=== PATIENT | male | born 1930 | race African-American/Black ===

== ENCOUNTER 2018-11-26 18:12 | Inpatient (IN) | payer MEDICARE, OTHER ==
[~2018-11-26] VITALS: Ht 172.7 cm; Wt 72.6 kg
[~2018-11-26 18:12] MED LIST: AMLODIPINE BESYL5 MG ORAL; BACTRIM DS TAB1 EAC1 ORAL; CATAPRES0.1 MG ORAL; CEPHALEXIN500 MG ORAL; DOXYCYCLINE HY100 M2 PO; IRON18 M1 PO; LATANOPROST2.5 ML BOTH EYES; MIRTAZAPINE15 MG ORAL; MULTIVITAMINS1 EAC2 ORAL; OMEPRAZOLE20 M3 ORAL; PROZAC10 MG ORAL
--- NOTE | 2018-11-26 18:22 | NUR ---
ED Nurse Note: PT BROUGHT IN BY AMBULANCE FROM [facility] DUE TO LOW WBC COUNT. PT AOX4 AND AMBULATORY. PT STATES HE IS ASYMPTOMATIC. ON ASSESSMENT, BP: 170/69. PT STATES HE IS ON BP MEDS BUT DID NOT GET HIS LAST DOSE WHICH WAS DUE AT 1700. DR CRESPO AWARE. OTHER VSS.
[2018-11-26 18:24] VITALS: BP 171/69
[2018-11-26] MEDS ORDERED: ACETAMINOPHEN325 M1 ORAL (18:24)
[2018-11-26] MEDS ORDERED: FERROUS SULFAT325 MG ORAL (18:24)
[2018-11-26] MEDS ORDERED: CRANBERRY500 M4 PO (18:24)
[2018-11-26] MEDS ORDERED: MELATONIN3 M2 PO (18:25)
[2018-11-26] MEDS ORDERED: SENNA-DOCUSATE1 EACH PO (18:25)
[2018-11-26] MEDS ORDERED: SERTRALINE HCL100 MG PO (18:26)
[2018-11-26 18:53] LABS: HEMATOCRIT 30.7 % (42.0-52.0); HEMOGLOBIN 10.3 G/DL (14.2-18.0); MEAN CORPUSCULAR VOLUME 90 FL (80-99); PLATELET COUNT 115 K/UL (150-450); RED CELL DISTRIBUTION WIDTH 15.4 % (11.6-14.8)
[2018-11-26 18:55] LABS: WHITE BLOOD COUNT 1.8 K/UL (4.8-10.8)
--- NOTE | 2018-11-26 18:56 | NUR ---
ED Nurse Note: URINE COLLECTED AND SENT TO LAB.
[2018-11-26 19:02] LABS: APPEARANCE,URINE CLEAR; BILIRUBIN, URINE NEGATIVE (NEGATIVE); COLOR,URINE PALE YELLOW; GLUCOSE, URINE (UA) NEGATIVE (NEGATIVE); KETONES,URINE NEGATIVE (NEGATIVE); LEUKOCYTE ESTERASE ,URINE 1+ (NEGATIVE); NITRITE,URINE NEGATIVE (NEGATIVE); PH,URINE 6 (4.5-8.0); PROTEIN,URINE NEGATIVE (NEGATIVE); UROBILINOGEN,URINE NORMAL MG/DL (0.0-1.0)
--- NOTE | 2018-11-26 19:08 | NUR ---
ED Nurse Note: REPORT GIVEN TO JOSE G PARADA.
[2018-11-26 19:09] LABS: ANION GAP 11 mmol/L (5-15); BLOOD UREA NITROGEN 22 mg/dL (7-18); CALCIUM 9.3 MG/DL (8.5-10.1); CARBON DIOXIDE 25 MMOL/L (21-32); CHLORIDE 103 MMOL/L (98-107); CREATININE 1.3 MG/DL (0.55-1.30); POTASSIUM 3.9 MMOL/L (3.5-5.1); SODIUM 139 MMOL/L (136-145)
[2018-11-26 19:20] LABS: ALANINE AMINOTRANSFERASE 17 U/L (12-78); ALBUMIN 4.6 G/DL (3.4-5.0); ALBUMIN/GLOBULIN RATIO 1.3 (1.0-2.7); ALKALINE PHOSPHATASE 109 U/L (46-116); ASPARTATE AMINO TRANSFERASE 21 U/L (15-37); BILIRUBIN,TOTAL 0.4 MG/DL (0.2-1.0)
--- NOTE | 2018-11-26 21:00 | NUR ---
ED Nurse Note: Pt laying in bed, eyes closed, non labored breathing. 250ml yellow urine dispossed of, will continue to monitor, pt denies pain
--- NOTE | 2018-11-26 21:35 | Emergency Room Report ---
History of Present Illness General Chief Complaint: Abnormal Labs Source: Medical Record Present Illness HPI 88 yo male presents ED for evaluation. Sent in from [facility] today for abnormal labs. Had recent lab work which showed white count of 2.3. History of leukemia. Patient states he feels okay he denies weakness. Denies fevers or chills. States he does have some dysuria as well. History of prior bladder infections. No other aggravating or relieving factors. Denies any other associated symptoms Allergies: Coded Allergies: BUSPIRONE (Unverified Allergy, Unknown, 11/16/15) LISINOPRIL (Unverified Allergy, Unknown, 11/16/15) Patient History Social History: Denies: smoking, alcohol use, drug use Immunizations: UTD Reviewed Nursing Documentation: PMH: Agreed; PSxH: Agreed Nursing Documentation-PMH Past Medical History: No History, Except For Hx Cardiac Problems: Yes - HTN, Anemia, Thrombocytopenia Hx Diabetes: No - CHRONIC KIDNEY DISEASE Hx Cancer: Yes - LEUKEMIA Hx Gastrointestinal Problems: Yes - GERD History Of Psychiatric Problem: Yes - Anxiety, Major depression, psychosis Hx Neurological Problems: Yes - Encephalopathy, dementia Hx Dementia: Yes Review of Systems All Other Systems: negative except mentioned in HPI Physical Exam Vital Signs Date Time Temp Pulse Resp B/P (MAP) Pulse Ox O2 Delivery O2 Flow Rate FiO2 11/26/18 18:13 98.2 61 16 165/72 (103) 94 Room Air Sp02 EP Interpretation: reviewed, normal General Appearance: no apparent distress, alert, GCS 15, non-toxic Head: normocephalic, atraumatic Eyes: bilateral eye normal inspection, bilateral eye PERRL ENT: hearing grossly normal, normal pharynx, no angioedema, normal voice Neck: full range of motion, supple/symm/no masses Respiratory: chest non-tender, lungs clear, normal breath sounds, speaking full sentences Cardiovascular #1: regular rate, rhythm, no edema Cardiovascular #2: 2+ carotid (R), 2+ carotid (L), 2+ radial (R), 2+ radial (L) , 2+ dorsalis pedis (R), 2+ dorsalis pedis (L) Gastrointestinal: normal bowel sounds, non tender, soft, non-distended, no guarding, no rebound Rectal: deferred Genitourinary: normal inspection, no CVA tenderness Musculoskeletal: back normal, gait/station normal, normal range of motion, non- tender Neurologic: alert, oriented x3, responsive, motor strength/tone normal, sensory intact, speech normal Psychiatric: judgement/insight normal, memory normal, mood/affect normal, no suicidal/homicidal ideation Reflexes: 3+ bicep (R), 3+ bicep (L), 3+ tricep (R), 3+ tricep (L), 3+ knee (R) , 3+ knee (L) Skin: normal color, no rash, warm/dry, well hydrated Lymphatic: no adenopathy Medical Decision Making Diagnostic Impression: Primary Impression: Pancytopenia ER Course Hospital Course 88-year-old male presents to ED for evaluation of low WBC Differential diagnoses include: sepsis, pancytopenia, anemia Clinical course Patient placed on stretcher. After initial history and physical I ordered labs , CXR, UA Labs- WBC 1.8, Hb/hct stable, Platelets low. electrolytes ok. UA negative CXR ok Patient admitted previously for pancytopenia. History of leukemia. Will admit for further work-up and evaluation patient will be admitted to Dr Dunne Diagnosis - pancytopenia Admitted to floor in serious condition Labs Test 11/26/18 18:25 11/26/18 18:56 White Blood Count 1.8 K/UL (4.8-10.8) Red Blood Count 3.40 M/UL (4.70-6.10) Hemoglobin 10.3 G/DL (14.2-18.0) Hematocrit 30.7 % (42.0-52.0) Mean Corpuscular Volume 90 FL (80-99) Mean Corpuscular Hemoglobin 30.3 PG (27.0-31.0) Mean Corpuscular Hemoglobin Concent 33.6 G/DL (32.0-36.0) Red Cell Distribution Width 15.4 % (11.6-14.8) Platelet Count 115 K/UL (150-450) Mean Platelet Volume 11.5 FL (6.5-10.1) Neutrophils (%) (Auto) % (45.0-75.0) Lymphocytes (%) (Auto) % (20.0-45.0) Monocytes (%) (Auto) % (1.0-10.0) Eosinophils (%) (Auto) % (0.0-3.0) Basophils (%) (Auto) % (0.0-2.0) Differential Total Cells Counted 100 Neutrophils % (Manual) 50 % (45-75) Lymphocytes % (Manual) 36 % (20-45) Monocytes % (Manual) 8 % (1-10) Eosinophils % (Manual) 3 % (0-3) Basophils % (Manual) 0 % (0-2) Band Neutrophils 3 % (0-8) Nucleated Red Blood Cells 1 /100 WBC Platelet Estimate Decreased Platelet Morphology Giant Platelets 1+ Sodium Level 139 MMOL/L (136-145) Potassium Level 3.9 MMOL/L (3.5-5.1) Chloride Level 103 MMOL/L (98-107) Carbon Dioxide Level 25 MMOL/L (21-32) Anion Gap 11 mmol/L (5-15) Blood Urea Nitrogen 22 mg/dL (7-18) Creatinine 1.3 MG/DL (0.55-1.30) Estimat Glomerular Filtration Rate mL/min (>60) Glucose Level 105 MG/DL (74-106) Lactic Acid Level 1.20 mmol/L (0.4-2.0) Calcium Level 9.3 MG/DL (8.5-10.1) Total Bilirubin 0.4 MG/DL (0.2-1.0) Aspartate Amino Transf (AST/SGOT) 21 U/L (15-37) Alanine Aminotransferase (ALT/SGPT) 17 U/L (12-78) Alkaline Phosphatase 109 U/L (46-116) Pro-B-Type Natriuretic Peptide 147 pg/mL (0-125) Total Protein 8.2 G/DL (6.4-8.2) Albumin 4.6 G/DL (3.4-5.0) Globulin 3.6 g/dL Albumin/Globulin Ratio 1.3 (1.0-2.7) Urine Color Pale yellow Urine Appearance Clear Urine pH 6 (4.5-8.0) Urine Specific [place] 1.010 (1.005-1.035) Urine Protein Negative (NEGATIVE) Urine Glucose (UA) Negative (NEGATIVE) Urine Ketones Negative (NEGATIVE) Urine Blood Negative (NEGATIVE) Urine Nitrite Negative (NEGATIVE) Urine Bilirubin Negative (NEGATIVE) Urine Urobilinogen Normal MG/DL (0.0-1.0) Urine Leukocyte Esterase 1+ (NEGATIVE) Urine RBC 0 /HPF (0 - 0) Urine WBC 5-10 /HPF (0 - 0) Urine Squamous Epithelial Cells Few /LPF (NONE/OCC) Urine Bacteria Occasional /HPF (NONE) Chest X-Ray Diagnostic Results Chest X-Ray Diagnostic Results : Chest X-Ray Ordered: Yes # of Views/Limited/Complete: 1 View Indication: Other EP Interpretation: Yes Interpretation: no consolidation, no effusion, no pneumothorax, no acute cardiopulmonary disease Impression: No acute disease Electronically Signed by: Electronically signed by Morris Resendez MD Last Vital Signs Date Time Temp Pulse Resp B/P (MAP) Pulse Ox O2 Delivery O2 Flow Rate FiO2 11/26/18 18:24 98.4 65 20 171/69 99 Room Air Status: improved Disposition: ADMITTED INPATIENT Condition: Serious Referrals: Samira Dunne MD (PCP) Morris Resendez MD Nov 26, 2018 21:35
--- NOTE | 2018-11-26 22:02 | NUR ---
TRANSFER TO FLOOR: Patient transferred to as ordered, per Dr Dunne. Report given to JOSE G Rojas. Belongings and medications given to . Family and or S/O informed of transfer.
[2018-11-26 22:30] VITALS: BP 187/85
--- NOTE | 2018-11-26 22:45 | NUR ---
NURSE NOTES: RECEIVED PATIENT FROM ER, GOT REPORT FROM JOSE G PARADA. PATIENT IN BED, AWAKE AND ALERT, VERBALLY RESPONSIVE. IV IN PLACE, PATENT. SKIN ASSESSMENT DONE, DRY INTACT SKIN INTACT, NOTED TO HAVE INTACT CYST ON RIGHT SIDE OF CHEST AND ALSO NOTED TO HAVE INTACT CYSTS ON BACK. REVIEWED PATIENT BELONGINGS, NO VALUABLES NOTED, PATIENT SIGNED BELONGINGS LIST. PATIENT BROUGHT HIS OWN DIAPERS AND WAS ADAMANT ON WEARING THEM. NURSE EXPLAINED RISK FOR SKIN BREAK WITH WEARING DIAPERS, PATIENT STILL WANTED TO WEAR A DIAPER. NO S/S DISTRESS NOTED. BED IN LOWEST POSITION, CALL LIGHT WITHIN REACH, BED ALARM ON. WILL CONTINUE TO MONITOR.
[2018-11-26 23:05] VITALS: BP 164/74
[2018-11-27] VITALS (7 sets, daily range): BP systolic 117–154; BP diastolic 67–82
[2018-11-27] MEDS ORDERED: Sennosides 8.6mg tab ORAL PRN (00:15)
--- NOTE | 2018-11-27 00:51 | NUR ---
NURSE NOTES: RECEIVED CALL FROM DR. HAMMONDS REGARDING ADMISSION ORDERS - CBC IN AM, SAME CODE STATUS AT SNF, CONTINUE SNF MEDS, CONTINUE DIET FROM SNF, SCD AND VENOUS DUPLEX BLE. ORDERS CARRIED OUT.
--- NOTE | 2018-11-27 00:53 | NUR ---
NURSE NOTES: CALLED [facility] AND SPOKE WITH KAMI REGARDING CODE STATUS, SHE SATED PATIENT FULL CODE AND PNA VACCINE @ 04/02/18 AND FLU 04/02/18.
--- NOTE | 2018-11-27 05:00 | History and Physical Report ---
DATE OF ADMISSION: 11/26/2018 HISTORY OF PRESENT ILLNESS: Please see the records. The patient was admitted for pancytopenia as well as UTI. The patient is a poor historian, has advanced dementia. Cannot get reliable history from the patient. The patient denies any nausea, vomiting, or diarrhea. Denies bleeding. Denies shortness of breath. Denies cough. PAST MEDICAL HISTORY: Dementia, hypertension, iron deficiency anemia, glaucoma, chronic pain, GERD, constipation, mood disorder, and hypertension. PAST SURGICAL HISTORY: Denies. ALLERGIES: Buspirone and lisinopril. MEDICATIONS: Ferrous sulfate, cranberry juice, amlodipine, omeprazole, mirtazapine, and Senokot. FAMILY HISTORY: Noncontributory. SOCIAL HISTORY: Denies smoking, alcohol, or illicit drugs. Comes from a care home. REVIEW OF SYSTEMS: HEENT: Denies headaches. RESPIRATORY: Denies shortness of breath. Denies cough. CARDIOVASCULAR: Denies chest pain. GASTROINTESTINAL: Denies nausea, vomiting, or diarrhea. EXTREMITIES: Denies pain. CENTRAL NERVOUS SYSTEM: Denies changes in vision or speech pattern. PHYSICAL EXAMINATION: VITAL SIGNS: Temperature is 98.2 degrees, pulse 61, and blood pressure 165/72. HEENT: PERRLA. NECK: Supple. No lymphadenopathy. CHEST: Clear to auscultation. CARDIOVASCULAR: Regular rate and rhythm. No murmurs or extra sounds. GASTROINTESTINAL: Soft, nontender, and nondistended. No organomegaly. EXTREMITIES: No edema. Moves all four extremities. Sensory intact to light touch. Reflexes equal on both sides. NEUROLOGIC: Oriented x1. Able to move all extremities. LABORATORY AND DIAGNOSTIC DATA: WBC is 1.8, hemoglobin 10.3, and platelets of 150,000. Sodium 139, potassium 3.9, BUN of 22, and creatinine 1.2. The patient has UTI. ASSESSMENT/PLAN: UTI. I have asked Dr. Alexandre Curtis to see the patient for management of UTI and also for pancytopenia and Dr. Roberts as well as Dr. Gume Webb to consult the patient from the above the patient has chronic pancytopenia. Samira Dunne M.D. DR: Ely JOB#: [id number] CC:
[2018-11-27 06:24] LABS: HEMATOCRIT 32.4 % (42.0-52.0); HEMOGLOBIN 10.5 G/DL (14.2-18.0); MEAN CORPUSCULAR VOLUME 93 FL (80-99); PLATELET COUNT 100 K/UL (150-450); RED BLOOD COUNT 3.47 M/UL (4.70-6.10); RED CELL DISTRIBUTION WIDTH 15.6 % (11.6-14.8)
[2018-11-27 06:47] LABS: WHITE BLOOD COUNT 1.4 K/UL (4.8-10.8)
--- NOTE | 2018-11-27 07:15 | NUR ---
NURSE NOTES: SPOKE WITH CASIE CORONA, PATIENT'S WBC 1.4. CALLED AND LEFT MESSAGE FOR DR. HAMMONDS. RECEIEVED CALL BACK FROM DR. HAMMONDS T Addendum: 11/27/18 at 0717 by LAY CHEEK RN RN NURSE NOTES: SPOKE WITH CASIE CORONA, PATIENT'S WBC 1.4. CALLED AND LEFT MESSAGE FOR DR. HAMMONDS. RECEIVED CALL BACK FROM DR. HAMMONDS AND RECEIVED ORDER TO CALL DR. NISHA TORO. CALLED AND LEFT MESSAGE FOR DR. Darío TORO'S ANSWERING SERVICE. CHARGE NURSE AWARE.
--- NOTE | 2018-11-27 07:17 | NUR ---
HAND-OFF: Report given to MARICRUZ Anderson RN.
--- NOTE | 2018-11-27 07:30 | NUR ---
NURSE NOTES: Received pt from JOSE G CHUN. Pt is alert and orient x4. pt is RA, No SOB or acute respiratory distress noted. Pt has intact iv access RAC 20g SL. pt is aware about collecting urine in the bottle. pt is notified to be NPO due to abd for 6 hours after breakfast. all needs attended, bed is locked and is in the lowest position. call light within easy reach. will continue to monitor.
--- NOTE | 2018-11-27 08:30 | NUR ---
NURSE NOTES: NORVAC didn't administer due to katelin cardia and waisted in med room. will continue to monitor.
--- NOTE | 2018-11-27 08:47 | NUR ---
[employer] MANUFACTURING CONSULTANTHAND ALMOND BLANCHER 88 Y/O MALE BIBA FROM [facility] TO [facility] CC:ABNORMAL LABS SI:PANCYTOPENIA VS: BP 171/69, P 57, T 98.4, RR 20, SpO2 94 WBC 1.8, RBC 3.40, H&H 10.3/30.7, Plt. Count 115, BUN 22 IS:CLONIDINE HCI 0.1mg ADMITTED TO MED/SURG DCP: BACK TO [facility]
[2018-11-27] MEDS ORDERED: cefTRIAXone 1 GM in D5W 55 ML IVPB SCH (09:00)
[2018-11-27] MEDS ORDERED: Sertraline 100mg tab ORAL SCH (09:00)
--- NOTE | 2018-11-27 09:48 | Diagnostic Imaging Report ---
Indication: Shortness of breath Technique: One view of the chest Comparison: none Findings: Lungs and pleural spaces are clear. Heart size is normal Impression: No acute process
--- NOTE | 2018-11-27 10:00 | NUR ---
NURSE NOTES: HR between 48-58, and Dr HAMMONDS and BAN aware, Dr WHEATLEY ordered stat EKG and ECHO and transfer to TELE, noted and carried out. will continue to monitor.
--- NOTE | 2018-11-27 10:32 | NUR ---
NURSE NOTES: EKG and ECHO hasn't done yet, called EKG and ECHO again and mentioned it's stat and should be done soon. will continue to monitor.
--- NOTE | 2018-11-27 10:56 | NUR ---
CHARGE NURSE NOTES: Per Dr Celestin order Pt to be transferred to tele. Spoke to MAYE Johnson. No bed is available. Pt is to be transferred to [facility] as soon as room is available.
[2018-11-27] MEDS ORDERED: TBO-Filgrastim 300 mcg/0.5ml SQ SCH (11:00)
--- NOTE | 2018-11-27 11:29 | NUR ---
NURSE NOTES: Dr WHEATLEY is notified about EKG and ECHO result, and he is aware we are still waiting for tele bed, no new order to RN. will continue to monitor.
--- NOTE | 2018-11-27 12:41 | Cardiac Electrophysiology PN ---
Subjective Subjective [id number] Objective Last 24 Hour Vital Signs Date Time Temp Pulse Resp B/P (MAP) Pulse Ox O2 Delivery O2 Flow Rate FiO2 11/27/18 11:59 97.2 56 18 126/67 (86) 97 11/27/18 09:00 Room Air 11/27/18 08:33 58 133/67 11/27/18 08:29 133/67 11/27/18 08:00 97.5 58 17 133/67 (89) 98 11/27/18 04:36 97.1 57 18 138/74 (95) 97 11/27/18 00:32 97.4 55 18 154/82 (106) 100 11/26/18 23:07 Room Air 11/26/18 23:05 97.3 64 164/74 (104) 11/26/18 22:30 96.7 61 19 187/85 (119) 96 11/26/18 22:00 57 16 142/87 97 Room Air 11/26/18 18:24 98.4 65 20 171/69 99 Room Air 11/26/18 18:13 98.2 61 16 165/72 (103) 94 Room Air Intake and Output 11/26/18 11/27/18 19:00 07:00 # Voids 1 3 Laboratory Tests Test 11/26/18 18:25 11/26/18 18:56 11/27/18 05:10 11/27/18 08:35 White Blood Count 1.8 K/UL (4.8-10.8) *L 1.4 K/UL (4.8-10.8) *L Red Blood Count 3.40 M/UL (4.70-6.10) L 3.47 M/UL (4.70-6.10) L Hemoglobin 10.3 G/DL (14.2-18.0) L 10.5 G/DL (14.2-18.0) L Hematocrit 30.7 % (42.0-52.0) L 32.4 % (42.0-52.0) L Mean Corpuscular Volume 90 FL (80-99) 93 FL (80-99) Mean Corpuscular Hemoglobin 30.3 PG (27.0-31.0) 30.2 PG (27.0-31.0) Mean Corpuscular Hemoglobin Concent 33.6 G/DL (32.0-36.0) 32.4 G/DL (32.0-36.0) Red Cell Distribution Width 15.4 % (11.6-14.8) H 15.6 % (11.6-14.8) H Platelet Count 115 K/UL (150-450) L 100 K/UL (150-450) L Mean Platelet Volume 11.5 FL (6.5-10.1) H 11.2 FL (6.5-10.1) H Neutrophils (%) (Auto) % (45.0-75.0) % (45.0-75.0) Lymphocytes (%) (Auto) % (20.0-45.0) % (20.0-45.0) Monocytes (%) (Auto) % (1.0-10.0) % (1.0-10.0) Eosinophils (%) (Auto) % (0.0-3.0) % (0.0-3.0) Basophils (%) (Auto) % (0.0-2.0) % (0.0-2.0) Differential Total Cells Counted 100 100 Neutrophils % (Manual) 50 % (45-75) 32 % (45-75) L Lymphocytes % (Manual) 36 % (20-45) 50 % (20-45) H Monocytes % (Manual) 8 % (1-10) 15 % (1-10) H Eosinophils % (Manual) 3 % (0-3) 3 % (0-3) Basophils % (Manual) 0 % (0-2) 0 % (0-2) Band Neutrophils 3 % (0-8) 0 % (0-8) Nucleated Red Blood Cells 1 /100 WBC Platelet Estimate Decreased L Decreased L Platelet Morphology Giant Platelets 1+ 1+ Anisocytosis 1+ 1+ Sodium Level 139 MMOL/L (136-145) Potassium Level 3.9 MMOL/L (3.5-5.1) Chloride Level 103 MMOL/L (98-107) Carbon Dioxide Level 25 MMOL/L (21-32) Anion Gap 11 mmol/L (5-15) Blood Urea Nitrogen 22 mg/dL (7-18) H Creatinine 1.3 MG/DL (0.55-1.30) Estimat Glomerular Filtration Rate mL/min (>60) Glucose Level 105 MG/DL (74-106) Lactic Acid Level 1.20 mmol/L (0.4-2.0) Calcium Level 9.3 MG/DL (8.5-10.1) Total Bilirubin 0.4 MG/DL (0.2-1.0) Aspartate Amino Transf (AST/SGOT) 21 U/L (15-37) Alanine Aminotransferase (ALT/SGPT) 17 U/L (12-78) Alkaline Phosphatase 109 U/L (46-116) Pro-B-Type Natriuretic Peptide 147 pg/mL (0-125) H Total Protein 8.2 G/DL (6.4-8.2) Albumin 4.6 G/DL (3.4-5.0) Globulin 3.6 g/dL Albumin/Globulin Ratio 1.3 (1.0-2.7) Urine Color Pale yellow Urine Appearance Clear Urine pH 6 (4.5-8.0) Urine Specific [place] 1.010 (1.005-1.035) Urine Protein Negative (NEGATIVE) Urine Glucose (UA) Negative (NEGATIVE) Urine Ketones Negative (NEGATIVE) Urine Blood Negative (NEGATIVE) Urine Nitrite Negative (NEGATIVE) Urine Bilirubin Negative (NEGATIVE) Urine Urobilinogen Normal MG/DL (0.0-1.0) Urine Leukocyte Esterase 1+ (NEGATIVE) H Urine RBC 0 /HPF (0 - 0) Urine WBC 5-10 /HPF (0 - 0) H Urine Squamous Epithelial Cells Few /LPF (NONE/OCC) Urine Bacteria Occasional /HPF (NONE) Polychromasia 1+ Carcinoembryonic Antigen Pending Prostate Specific Antigen 12.18 ng/mL (0.13-4.0) H Hepatitis A IgM Antibody Pending Hepatitis B Surface Antigen Pending Hepatitis B Core IgM Antibody Pending Hepatitis C Antibody Pending HIV (1&2) Antibody Rapid Negative (NEGATIVE) Aurelio Hood MD Nov 27, 2018 12:41
--- NOTE | 2018-11-27 13:05 | NUR ---
NURSE NOTES: Patient transferred from [facility], and received report from Afsoon/RN. Patient awake and alert, No acute distress noted at this time, Heart monitor in place. IV on right AC patent, no bleeding or infiltration noted. Patient denies any pain at this time. Vitals are stable except HR bradycardia. Bed in low position and locked, Call light within reach. Will continue plan of care.
--- NOTE | 2018-11-27 13:09 | NUR ---
NURSE NOTES: pt is stable, pt is alert and orient x4. no SOB or acute respiratory distress noted. pt is NPO due to abd . Dr Miley WADE visited pt and is aware about WBC 1.4 and other lab results[address] Dr WHEATLEY visited pt and and saw EKG, no new order to RN. pt transferred to TELE and report given to JOSE G SANTOS.
--- NOTE | 2018-11-27 13:14 | Consultation ---
History of Present Illness General Chief Complaint: Abnormal Labs Present Illness Allergies: Coded Allergies: BUSPIRONE (Unverified Allergy, Unknown, 11/16/15) LISINOPRIL (Unverified Allergy, Unknown, 11/16/15) Medication History Scheduled Amlodipine Besylate* (Amlodipine Besylate*), 5 MG ORAL DAILY, (Reported) Clonidine Hcl* (Catapres*), 0.1 MG ORAL BID, (Reported) Cranberry Extract (Cranberry), 900 MG PO BID, (Reported) Ferrous Sulfate* (Ferrous Sulfate*), 325 MG ORAL DAILY, (Reported) Latanoprost* (Xalatan*), 1 DROP BOTH EYES BEDTIME, (Reported) Multivitamins* (Multivitamins*), 1 TAB ORAL DAILY, (Reported) Omeprazole (Omeprazole), 20 MG ORAL DAILY, (Reported) Sertraline Hcl* (Zoloft*), 200 MG PO DAILY, (Reported) Scheduled PRN Acetaminophen* (Acetaminophen 325MG Tablet*), 650 MG ORAL Q4H PRN for For Pain, (Reported) Melatonin (Melatonin), 3 MG PO HS PRN for SLEEP, (Reported) Sennosides/Docusate Sodium (Senna-Docusate Sodium Tablet), 2 EACH PO DAILY PRN for Constipation, (Reported) Discontinued Medications Doxycycline Hyclate (Doxycycline Hyclate), 100 MG PO Q12HR, (Reported) Discontinued Reason: Therapy completed Fluoxetine Hcl* (Prozac*), 10 MG ORAL DAILY, (Reported) Discontinued Reason: Therapy completed Iron (Iron), 325 MG PO TID, (Reported) Discontinued Reason: Therapy completed Mirtazapine* (Remeron*), 15 MG ORAL BEDTIME, (Reported) Discontinued Reason: Therapy completed Patient History Healthcare decision maker Resuscitation status Full Code Advanced Directive on File Physical Exam Last 24 Hour Vital Signs Date Time Temp Pulse Resp B/P (MAP) Pulse Ox O2 Delivery O2 Flow Rate FiO2 11/27/18 11:59 97.2 56 18 126/67 (86) 97 11/27/18 09:00 Room Air 11/27/18 08:33 58 133/67 11/27/18 08:29 133/67 11/27/18 08:00 97.5 58 17 133/67 (89) 98 11/27/18 04:36 97.1 57 18 138/74 (95) 97 11/27/18 00:32 97.4 55 18 154/82 (106) 100 11/26/18 23:07 Room Air 11/26/18 23:05 97.3 64 164/74 (104) 11/26/18 22:30 96.7 61 19 187/85 (119) 96 11/26/18 22:00 57 16 142/87 97 Room Air 11/26/18 18:24 98.4 65 20 171/69 99 Room Air 11/26/18 18:13 98.2 61 16 165/72 (103) 94 Room Air Intake and Output 11/26/18 11/27/18 19:00 07:00 # Voids 1 3 Laboratory Tests Test 11/26/18 18:25 11/26/18 18:56 11/27/18 05:10 11/27/18 08:35 White Blood Count 1.8 K/UL (4.8-10.8) *L 1.4 K/UL (4.8-10.8) *L Red Blood Count 3.40 M/UL (4.70-6.10) L 3.47 M/UL (4.70-6.10) L Hemoglobin 10.3 G/DL (14.2-18.0) L 10.5 G/DL (14.2-18.0) L Hematocrit 30.7 % (42.0-52.0) L 32.4 % (42.0-52.0) L Mean Corpuscular Volume 90 FL (80-99) 93 FL (80-99) Mean Corpuscular Hemoglobin 30.3 PG (27.0-31.0) 30.2 PG (27.0-31.0) Mean Corpuscular Hemoglobin Concent 33.6 G/DL (32.0-36.0) 32.4 G/DL (32.0-36.0) Red Cell Distribution Width 15.4 % (11.6-14.8) H 15.6 % (11.6-14.8) H Platelet Count 115 K/UL (150-450) L 100 K/UL (150-450) L Mean Platelet Volume 11.5 FL (6.5-10.1) H 11.2 FL (6.5-10.1) H Neutrophils (%) (Auto) % (45.0-75.0) % (45.0-75.0) Lymphocytes (%) (Auto) % (20.0-45.0) % (20.0-45.0) Monocytes (%) (Auto) % (1.0-10.0) % (1.0-10.0) Eosinophils (%) (Auto) % (0.0-3.0) % (0.0-3.0) Basophils (%) (Auto) % (0.0-2.0) % (0.0-2.0) Differential Total Cells Counted 100 100 Neutrophils % (Manual) 50 % (45-75) 32 % (45-75) L Lymphocytes % (Manual) 36 % (20-45) 50 % (20-45) H Monocytes % (Manual) 8 % (1-10) 15 % (1-10) H Eosinophils % (Manual) 3 % (0-3) 3 % (0-3) Basophils % (Manual) 0 % (0-2) 0 % (0-2) Band Neutrophils 3 % (0-8) 0 % (0-8) Nucleated Red Blood Cells 1 /100 WBC Platelet Estimate Decreased L Decreased L Platelet Morphology Giant Platelets 1+ 1+ Anisocytosis 1+ 1+ Sodium Level 139 MMOL/L (136-145) Potassium Level 3.9 MMOL/L (3.5-5.1) Chloride Level 103 MMOL/L (98-107) Carbon Dioxide Level 25 MMOL/L (21-32) Anion Gap 11 mmol/L (5-15) Blood Urea Nitrogen 22 mg/dL (7-18) H Creatinine 1.3 MG/DL (0.55-1.30) Estimat Glomerular Filtration Rate mL/min (>60) Glucose Level 105 MG/DL (74-106) Lactic Acid Level 1.20 mmol/L (0.4-2.0) Calcium Level 9.3 MG/DL (8.5-10.1) Total Bilirubin 0.4 MG/DL (0.2-1.0) Aspartate Amino Transf (AST/SGOT) 21 U/L (15-37) Alanine Aminotransferase (ALT/SGPT) 17 U/L (12-78) Alkaline Phosphatase 109 U/L (46-116) Pro-B-Type Natriuretic Peptide 147 pg/mL (0-125) H Total Protein 8.2 G/DL (6.4-8.2) Albumin 4.6 G/DL (3.4-5.0) Globulin 3.6 g/dL Albumin/Globulin Ratio 1.3 (1.0-2.7) Urine Color Pale yellow Urine Appearance Clear Urine pH 6 (4.5-8.0) Urine Specific [place] 1.010 (1.005-1.035) Urine Protein Negative (NEGATIVE) Urine Glucose (UA) Negative (NEGATIVE) Urine Ketones Negative (NEGATIVE) Urine Blood Negative (NEGATIVE) Urine Nitrite Negative (NEGATIVE) Urine Bilirubin Negative (NEGATIVE) Urine Urobilinogen Normal MG/DL (0.0-1.0) Urine Leukocyte Esterase 1+ (NEGATIVE) H Urine RBC 0 /HPF (0 - 0) Urine WBC 5-10 /HPF (0 - 0) H Urine Squamous Epithelial Cells Few /LPF (NONE/OCC) Urine Bacteria Occasional /HPF (NONE) Polychromasia 1+ Carcinoembryonic Antigen Pending Prostate Specific Antigen 12.18 ng/mL (0.13-4.0) H Hepatitis A IgM Antibody Pending Hepatitis B Surface Antigen Pending Hepatitis B Core IgM Antibody Pending Hepatitis C Antibody Pending HIV (1&2) Antibody Rapid Negative (NEGATIVE) Height (Feet): 5 Height (Inches): 8.00 Weight (Pounds): 160 Medications Current Medications Medications (Trade) Dose Ordered Sig/Joellen Route PRN Reason Start Time Stop Time Status Last Admin Dose Admin Acetaminophen (Tylenol) 650 mg Q4H PRN ORAL For Pain 11/27/18 00:00 12/27/18 00:00 Amlodipine Besylate (Norvasc) 5 mg DAILY ORAL 11/27/18 09:00 12/27/18 08:59 Ceftriaxone Sodium 1 gm/ Dextrose 55 ml @ 110 mls/hr DAILY IVPB 11/27/18 09:00 12/04/18 08:59 11/27/18 08:28 Ferrous Sulfate (Feosol) 325 mg DAILY ORAL 11/27/18 09:00 12/27/18 08:59 11/27/18 08:28 Latanoprost (Xalatan) 1 drop BEDTIME BOTH EYES 11/27/18 21:00 12/27/18 20:59 Multivitamins (Multivitamins) 1 tab DAILY ORAL 11/27/18 09:00 12/27/18 08:59 11/27/18 08:29 Pantoprazole (Protonix) 40 mg ACBREAKFAST ORAL 11/27/18 06:30 12/27/18 06:29 11/27/18 05:36 Sennosides (Senokot) 17.2 mg PRN PRN ORAL Constipation 11/27/18 00:15 12/27/18 00:14 Sertraline HCl (Zoloft) 200 mg DAILY ORAL 11/27/18 09:00 12/27/18 08:59 11/27/18 08:28 Assessment/Plan Assessment/Plan: Hematology Consultation Chief Complaint: Abnormal Labs REQ MD: Samira Dunne RFC: Leukopenia, LEUKEMIA history DOS: 11/27/18 HPI 88 yo male presents ED for evaluation. I have seen him before, approximately 3 years ago in 2016, labs and notes were reviewed. Sent in from [facility] today for abnormal labs. Had recent lab work which showed white count of 2.3. History of leukemia. Patient states he feels okay he denies weakness. Denies fevers or chills. States he does have some dysuria as well. History of prior bladder infections. No other aggravating or relieving factors. Denies any other associated symptoms, at this time, was given neupogen and heme was consulted. Allergies: BUSPIRONE (Unverified Allergy, Unknown, 11/16/15) LISINOPRIL (Unverified Allergy, Unknown, 11/16/15) Social History: Denies: smoking, alcohol use, drug use Immunizations: UTD Reviewed Nursing Documentation: PMH: Agreed; PSxH: Agreed Past Medical History: No History, Except For Hx Cardiac Problems: Yes - HTN, Anemia, Thrombocytopenia Hx Diabetes: No - CHRONIC KIDNEY DISEASE Hx Cancer: Yes - LEUKEMIA Hx Gastrointestinal Problems: Yes - GERD History Of Psychiatric Problem: Yes - Anxiety, Major depression, psychosis Hx Neurological Problems: Yes - Encephalopathy, dementia Hx Dementia: Yes Review of Systems: negative except mentioned in HPI Last 24 Hour Vital Signs Date Time Temp Pulse Resp B/P (MAP) Pulse Ox O2 Delivery O2 Flow Rate FiO2 11/27/18 11:59 97.2 56 18 126/67 (86) 97 11/27/18 09:00 Room Air 6/14/19 08:33 58 133/67 11/27/18 08:29 133/67 11/27/18 08:00 97.5 58 17 133/67 (89) 98 11/27/18 04:36 97.1 57 18 138/74 (95) 97 11/27/18 00:32 97.4 55 18 154/82 (106) 100 11/26/18 23:07 Room Air 11/26/18 23:05 97.3 64 164/74 (104) 11/26/18 22:30 96.7 61 19 187/85 (119) 96 11/26/18 22:00 57 16 142/87 97 Room Air 11/26/18 18:24 98.4 65 20 171/69 99 Room Air 11/26/18 18:13 98.2 61 16 165/72 (103) 94 Room Air Physical Exam: Vitals: reviewed General Appearance: NAD HEENT: normocephalic, atraumatic Neck: non-tender, normal alignment Respiratory/Chest: normal breath sounds bilaterally Cardiovascular/Chest: normal peripheral pulses, normal rate Abdomen: normal bowel sounds, soft, nontender Extremities: normal range of motion Active Scripts Medications Dose Route/Sig Max Daily Dose Days Date Category Dose Instructions Zoloft* (Sertraline HCl) 100 Mg Tablet 200 Mg PO DAILY 11/26/18 Reported Senna-Docusate Sodium Tablet (Sennosides/Docusate Sodium) 1 Each Tablet 2 Each PO DAILY PRN 11/26/18 Reported Melatonin 3 Mg Tab.rapdis 3 Mg PO HS PRN 11/26/18 Reported Ferrous Sulfate* (Ferrous Sulfate) 325 Mg Tablet 325 Mg ORAL DAILY 11/26/18 Reported Cranberry (Cranberry Extract) 500 Mg Tablet 900 Mg PO BID 11/26/18 Reported Acetaminophen 325MG Tablet* (Acetaminophen) 325 Mg Tablet 650 Mg ORAL Q4H PRN 11/26/18 Reported Multivitamins* (Multivitamins) 1 Each Tablet 1 Tab ORAL DAILY 11/20/15 Reported Omeprazole 20 Mg Tablet.dr 20 Mg ORAL DAILY 11/16/15 Reported Xalatan* (Latanoprost) 2.5 Ml Drops 1 Drop BOTH EYES BEDTIME 11/16/15 Reported Catapres* (Clonidine HCl) 0.1 Mg Tablet 0.1 Mg ORAL BID 11/16/15 Reported HOLD IF SBP < 110 OR HR < 60 Amlodipine Besylate* (Amlodipine Besylate) 5 Mg Tablet 5 Mg ORAL DAILY 11/16/15 Reported HOLD IF SBP < 110 OR HR < 60 Laboratory Tests Test 11/26/18 18:25 11/26/18 18:56 11/27/18 05:10 11/27/18 08:35 White Blood Count 1.8 K/UL (4.8-10.8) *L 1.4 K/UL (4.8-10.8) *L Red Blood Count 3.40 M/UL (4.70-6.10) L 3.47 M/UL (4.70-6.10) L Hemoglobin 10.3 G/DL (14.2-18.0) L 10.5 G/DL (14.2-18.0) L Hematocrit 30.7 % (42.0-52.0) L 32.4 % (42.0-52.0) L Mean Corpuscular Volume 90 FL (80-99) 93 FL (80-99) Mean Corpuscular Hemoglobin 30.3 PG (27.0-31.0) 30.2 PG (27.0-31.0) Mean Corpuscular Hemoglobin Concent 33.6 G/DL (32.0-36.0) 32.4 G/DL (32.0-36.0) Red Cell Distribution Width 15.4 % (11.6-14.8) H 15.6 % (11.6-14.8) H Platelet Count 115 K/UL (150-450) L 100 K/UL (150-450) L Mean Platelet Volume 11.5 FL (6.5-10.1) H 11.2 FL (6.5-10.1) H Neutrophils (%) (Auto) % (45.0-75.0) % (45.0-75.0) Lymphocytes (%) (Auto) % (20.0-45.0) % (20.0-45.0) Monocytes (%) (Auto) % (1.0-10.0) % (1.0-10.0) Eosinophils (%) (Auto) % (0.0-3.0) % (0.0-3.0) Basophils (%) (Auto) % (0.0-2.0) % (0.0-2.0) Differential Total Cells Counted 100 100 Neutrophils % (Manual) 50 % (45-75) 32 % (45-75) L Lymphocytes % (Manual) 36 % (20-45) 50 % (20-45) H Monocytes % (Manual) 8 % (1-10) 15 % (1-10) H Eosinophils % (Manual) 3 % (0-3) 3 % (0-3) Basophils % (Manual) 0 % (0-2) 0 % (0-2) Band Neutrophils 3 % (0-8) 0 % (0-8) Nucleated Red Blood Cells 1 /100 WBC Platelet Estimate Decreased L Decreased L Platelet Morphology Giant Platelets 1+ 1+ Anisocytosis 1+ 1+ Sodium Level 139 MMOL/L (136-145) Potassium Level 3.9 MMOL/L (3.5-5.1) Chloride Level 103 MMOL/L (98-107) Carbon Dioxide Level 25 MMOL/L (21-32) Anion Gap 11 mmol/L (5-15) Blood Urea Nitrogen 22 mg/dL (7-18) H Creatinine 1.3 MG/DL (0.55-1.30) Estimat Glomerular Filtration Rate mL/min (>60) Glucose Level 105 MG/DL (74-106) Lactic Acid Level 1.20 mmol/L (0.4-2.0) Calcium Level 9.3 MG/DL (8.5-10.1) Total Bilirubin 0.4 MG/DL (0.2-1.0) Aspartate Amino Transf (AST/SGOT) 21 U/L (15-37) Alanine Aminotransferase (ALT/SGPT) 17 U/L (12-78) Alkaline Phosphatase 109 U/L (46-116) Pro-B-Type Natriuretic Peptide 147 pg/mL (0-125) H Total Protein 8.2 G/DL (6.4-8.2) Albumin 4.6 G/DL (3.4-5.0) Globulin 3.6 g/dL Albumin/Globulin Ratio 1.3 (1.0-2.7) Urine Color Pale yellow Urine Appearance Clear Urine pH 6 (4.5-8.0) Urine Specific [place] 1.010 (1.005-1.035) Urine Protein Negative (NEGATIVE) Urine Glucose (UA) Negative (NEGATIVE) Urine Ketones Negative (NEGATIVE) Urine Blood Negative (NEGATIVE) Urine Nitrite Negative (NEGATIVE) Urine Bilirubin Negative (NEGATIVE) Urine Urobilinogen Normal MG/DL (0.0-1.0) Urine Leukocyte Esterase 1+ (NEGATIVE) H Urine RBC 0 /HPF (0 - 0) Urine WBC 5-10 /HPF (0 - 0) H Urine Squamous Epithelial Cells Few /LPF (NONE/OCC) Urine Bacteria Occasional /HPF (NONE) Polychromasia 1+ Carcinoembryonic Antigen Pending Prostate Specific Antigen 12.18 ng/mL (0.13-4.0) H Hepatitis A IgM Antibody Pending Hepatitis B Surface Antigen Pending Hepatitis B Core IgM Antibody Pending Hepatitis C Antibody Pending HIV (1&2) Antibody Rapid Negative (NEGATIVE) Assessment and Recs: # Leukemia, unspecified -- have seen this patient back in 2015, labs, notes and imaging reviewed, wbc remains low though at this time is lower than it was before --> at this time, his pancytopenia, called [facility] and they do not have any further records in regards to type of anemia --> will given 1 dose of neupogen 300mcg sq x 1 --> hepatitis and hiv were negative --> us of the abd was negative for cirrhosis --> have made an appt for 2 weeks to follow up at our clinic --> reverse isolation if ANC<1000 # 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 GREATLY APPRECIATE CONSULTATION. Gume Webb MD Nov 27, 2018 13:14
--- NOTE | 2018-11-27 14:45 | Diagnostic Imaging Report ---
Indication: Abnormal renal function tests, abnormal liver function tests Technique: Mclain-scale and duplex images of the upper abdomen were obtained Comparison: 11/17/2015 Findings: Gallbladder is unremarkable, without stones, wall thickening, nor pericholecystic fluid. Sonographic Wilson's sign is negative. Common bile duct measures 5 mm in diameter. No intrahepatic biliary ductal dilatation. Liver demonstrates normal echogenicity. Within the left hepatic lobe, there is an 11 mm cyst again demonstrated. Portal vein and hepatic veins are patent. Pancreas is unremarkable. Spleen is unremarkable. Left kidney measures 10 cm in length. Right kidney measures 0.7 cm length. Both kidneys demonstrate normal echogenicity. There is no hydronephrosis. A cyst is seen in the lower pole of the left kidney. Questionable echogenic focus with shadowing is seen in the left kidney. Non-aneurysmal abdominal aorta . When compared to prior study, the left renal echogenic focus was not appreciated previously. Other findings are unchanged Impression: Abnormality. No evidence of gallstones or dilated ducts Hepatic and left renal cysts are incidentally noted Echogenic focus in the left kidney, could represent a small nonobstructive calculus
--- NOTE | 2018-11-27 17:15 | Consultation ---
DATE OF CONSULTATION: 11/27/2018 INFECTIOUS DISEASE CONSULTATION CONSULTING PHYSICIAN: Alexandre Curtis M.D. PRIMARY ATTENDING PHYSICIAN: Samira Dunne M.D. REASON FOR CONSULT: Pyuria, UTI. HISTORY OF PRESENT ILLNESS: The patient is an 88-year-old male who is a [place] [facility] resident, admitted last night because of abnormal labs. He has decreased WBC count. Also, he has anemia and thrombocytopenia. UA has mild pyuria. The patient has pain in bladder. PAST MEDICAL HISTORY: Significant for pancytopenia. The patient had an another admission to [facility] in 2016. At that time, no other cause found for pancytopenia. Abdominal ultrasound showed normal liver and spleen. He has history of hypertension. In the history also it was mentioned leukemia. He has anxiety, depression, and dementia. He has glaucoma. ALLERGIES: Allergic to buspirone and lisinopril. MEDICATIONS: Xalatan eye drops, Filgrastim, ferrous sulfate, multivitamin, Zoloft, Norvasc, clonidine, ceftriaxone, Protonix, Senokot, and Tylenol. SOCIAL HISTORY: [facility] resident. Denies alcohol, drug abuse, or smoking. Single, has no child. REVIEW OF SYSTEMS: No fever. No chills. No coughing. No shortness of breath. No change in appetite. No nausea. No vomiting. He has pain at the time of urination. PHYSICAL EXAMINATION: GENERAL: Seems to have normal weight. HEAD AND NECK: [place] conjunctivae. HEART: Normal rate. LUNGS: Clear. ABDOMEN: Soft and nontender. EXTREMITIES: He has no edema. NEUROLOGIC: Awake and alert, move all extremities. LABORATORY AND DIAGNOSTIC DATA: WBC today is 1.4, hemoglobin 10.5, hematocrit 32.4, and platelets 100. PSA is 12.18. Sodium 139, potassium 3.9, chloride 103, bicarbonate 25, BUN 22, and creatinine 1.3. BNP is 147. Chest x-ray is showing no acute process. UA showed wbc's of 5 to 10, leukocyte esterase 1+, and bacteria occasional. IMPRESSION: 1. Pyuria, may have urinary tract infection. 2. Pancytopenia. 3. Bradycardia. 4. Hypertension. 5. Chronic kidney disease, stage 2. 6. Depression. 7. Anxiety. 8. Dementia. 9. Glaucoma. RECOMMENDATION: We will continue ceftriaxone. We will follow up the cultures. At the end of my exam, I thank Dr. Dunne for involving me in the care of this patient. Alexandre Curtis M.D. DR: PATRICIA JOB#: [id number] CC:
--- NOTE | 2018-11-27 17:30 | Consultation ---
DATE OF CONSULTATION: 11/27/2018 CARDIOLOGY CONSULTATION CONSULTING PHYSICIAN: Aurelio Hood M.D. REFERRING PHYSICIAN: Samira Dunne M.D. REASON FOR CONSULTATION: Bradycardia and hypertension. HISTORY OF PRESENT ILLNESS: The patient is an 88-year-old gentleman with history of hypertension, leukemia, chronic kidney disease, history of major depression, psychosis, encephalopathy, and dementia who was brought in from [facility] facility for abnormal labs including white count of 22.3. The patient denies any chest pain or shortness of breath; however, noted to be bradycardic with heart rate in the high 40 and low 50s. A 12-lead EKG obtained that showed sinus bradycardia with marked sinus arrhythmia with heart rate of 53 and first-degree AV block. REVIEW OF SYSTEMS: Negative other than what was mentioned in history of present illness. PAST MEDICAL HISTORY: As mentioned above. FAMILY HISTORY: Noncontributory. SOCIAL HISTORY: He lives in group home. ALLERGIES: He is allergic to BuSpar and lisinopril. PHYSICAL EXAMINATION: VITAL SIGNS: Show blood pressure of 126/67, pulse is 56, respirations 18, temperature 97.2. HEAD AND NECK: Showed no JVD or carotid bruits. LUNGS: Clear. CARDIOVASCULAR: Regular S1 and S2 with no gallop or murmur. Bradycardic. ABDOMEN: Soft. EXTREMITIES: No pitting edema. LABORATORY AND DIAGNOSTIC DATA: His labs show white count of 1.4, hemoglobin of 10.5, hematocrit 32.4, platelet count is 100. Sodium 139, potassium 3.9, BUN of 20, creatinine 1.3. PSA is 12.1. ASSESSMENT AND PLAN: 1. Bradycardia due to sinus bradycardia. The patient also has first-degree AV block. I would discontinue clonidine. Transfer the patient to telemetry and get an echocardiogram for further evaluation. 2. Hypertension. Continue amlodipine 5 mg daily and discontinue clonidine. 3. Pancytopenia. Further evaluation by Dr. Webb. 4. Dementia. 5. Elevated PSA level. Thank you very much, Dr. Dunne, for allowing me to participate in the care of this patient. Please do not hesitate to contact me for any questions regarding my evaluation. Aurelio Hood M.D. DR: JOJO JOB#: [id number] CC:
--- NOTE | 2018-11-27 19:30 | NUR ---
NURSE NOTES: Received patient from Sandra RN. Patient in bed, awake and oriented x4, on room air, no signs of respiratory distress. Bed locked, in low position, bed alarm on, call light within reach. Patient calm and cooperative.
--- NOTE | 2018-11-27 19:31 | NUR ---
HAND-OFF: Report given to Kofi/RN, Patient is resting comfortably, No acute distress/SOB noted. Endorsed plan of care.
[2018-11-27] MEDS: Latanoprost 0.005% Opth 2.5ml Soln BOTH EYES SCH (20:35)
[2018-11-27] MEDS ORDERED: Latanoprost 0.005% Opth 2.5ml Soln BOTH EYES SCH (21:00)
--- NOTE | 2018-11-27 21:48 | General Progress Note ---
Assessment/Plan Problem List: (1) HTN (hypertension) ICD Codes: I10 - Essential (primary) hypertension SNOMED: 63392219 (2) Pancytopenia ICD Codes: D61.818 - Other pancytopenia SNOMED: 658501944 (3) Abnormal laboratory test result ICD Codes: R89.9 - Unspecified abnormal finding in specimens from other organs , systems and tissues SNOMED: 358032859 Status: progressing Assessment/Plan: neutropenia uti afebrile heme/onc is on the case afebrile obs reviewed chart and labs Subjective ROS Limited/Unobtainable: Yes Allergies: Coded Allergies: BUSPIRONE (Unverified Allergy, Unknown, 11/16/15) LISINOPRIL (Unverified Allergy, Unknown, 11/16/15) Objective Last 24 Hour Vital Signs Date Time Temp Pulse Resp B/P (MAP) Pulse Ox O2 Delivery O2 Flow Rate FiO2 11/27/18 20:00 97.4 74 20 131/69 (89) 97 11/27/18 16:00 97.3 65 20 117/68 (84) 97 11/27/18 16:00 89 11/27/18 13:28 56 11/27/18 13:00 97.5 58 20 132/72 (92) 100 11/27/18 11:59 97.2 56 18 126/67 (86) 97 11/27/18 09:00 Room Air 11/27/18 08:33 58 133/67 11/27/18 08:29 133/67 11/27/18 08:00 97.5 58 17 133/67 (89) 98 11/27/18 04:36 97.1 57 18 138/74 (95) 97 11/27/18 00:32 97.4 55 18 154/82 (106) 100 11/26/18 23:07 Room Air 11/26/18 23:05 97.3 64 164/74 (104) 11/26/18 22:30 96.7 61 19 187/85 (119) 96 11/26/18 22:00 57 16 142/87 97 Room Air Intake and Output 11/26/18 11/27/18 18:59 06:59 # Voids 1 3 Laboratory Tests 11/27/18 05:10: White Blood Count 1.4*L, Red Blood Count 3.47L, Hemoglobin 10.5L, Hematocrit 32.4L, Mean Corpuscular Volume 93, Mean Corpuscular Hemoglobin 30.2, Mean Corpuscular Hemoglobin Concent 32.4, Red Cell Distribution Width 15.6H, Platelet Count 100L, Mean Platelet Volume 11.2H, Neutrophils (%) (Auto) , Lymphocytes (%) (Auto) , Monocytes (%) (Auto) , Eosinophils (%) (Auto) , Basophils (%) (Auto) , Differential Total Cells Counted 100, Neutrophils % ( Manual) 32L, Lymphocytes % (Manual) 50H, Monocytes % (Manual) 15H, Eosinophils % (Manual) 3, Basophils % (Manual) 0, Band Neutrophils 0, Platelet Estimate DecreasedL, Platelet Morphology , Giant Platelets 1+, Polychromasia 1+, Anisocytosis 1+ 11/27/18 08:35: Carcinoembryonic Antigen [Pending], Prostate Specific Antigen 12.18H, Hepatitis A IgM Antibody [Pending], Hepatitis B Surface Antigen [Pending], Hepatitis B Core IgM Antibody [Pending], Hepatitis C Antibody [Pending], HIV (1&2) Antibody Rapid Negative Height (Feet): 5 Height (Inches): 8.00 Weight (Pounds): 160 Neck: supple Cardiovascular: normal rate Respiratory/Chest: lungs clear Abdomen: soft Samira Dunne MD Nov 27, 2018 21:48
--- NOTE | 2018-11-27 22:27 | NUR ---
NURSE NOTES:Patient received from Max Garcia . Patient resting in bed comfortable . Denies pain at this time. no sob / no n/v noted .Safety / fall implemented . call light within reach . Bed in low position at all times. will continue to monitor .
--- NOTE | 2018-11-27 22:27 | NUR ---
HAND-OFF: Report given to Glenny OSULLIVAN. Patient in stable condition, plan of care endorsed.
[2018-11-28] VITALS: BP 132/55
[2018-11-28] MEDS ORDERED: Sennosides 8.6mg tab ORAL PRN (00:15)
[2018-11-28 04:00] VITALS: BP 123/59
--- NOTE | 2018-11-28 07:10 | NUR ---
HAND-OFF: Report given to to JODIE Garcia
--- NOTE | 2018-11-28 07:15 | NUR ---
NURSE NOTES: Pt received from Glenny OSULLIVAN alert and oriented x3 with no acute s/s of distress noted. On room air. RN educated pt to ensure neutropenic precautions are implemented, pt verbalized understanding. IV site asymptomatic and patent, on saline lock on R fa 20g. Bed in lowest position, call light and belongings within reach.
--- NOTE | 2018-11-28 07:26 | Hematology/Onc Progress Note ---
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 GREATLY APPRECIATE CONSULTATION. Subjective Allergies: Coded Allergies: BUSPIRONE (Unverified Allergy, Unknown, 11/16/15) LISINOPRIL (Unverified Allergy, Unknown, 11/16/15) Subjective 11/28: No acute events, pt resting no distress. Objective Objective Current Medications Medications (Trade) Dose Ordered Sig/Joellen Route PRN Reason Start Time Stop Time Status Last Admin Dose Admin Acetaminophen (Tylenol) 650 mg Q4H PRN ORAL For Pain 11/27/18 14:26 12/27/18 14:25 Amlodipine Besylate (Norvasc) 5 mg DAILY ORAL 11/28/18 09:00 12/27/18 08:59 Ceftriaxone Sodium 1 gm/ Dextrose 55 ml @ 110 mls/hr DAILY IVPB 11/28/18 09:00 12/04/18 08:59 Ferrous Sulfate (Feosol) 325 mg DAILY ORAL 11/28/18 09:00 12/27/18 08:59 Latanoprost (Xalatan) 1 drop BEDTIME BOTH EYES 11/27/18 21:00 12/27/18 20:59 11/27/18 20:35 Multivitamins (Multivitamins) 1 tab DAILY ORAL 11/28/18 09:00 12/27/18 08:59 Pantoprazole (Protonix) 40 mg ACBREAKFAST ORAL 11/28/18 06:30 12/27/18 06:29 11/28/18 06:04 Sennosides (Senokot) 17.2 mg DAILYPRN PRN ORAL Constipation 11/28/18 00:15 12/28/18 00:14 Sertraline HCl (Zoloft) 200 mg DAILY ORAL 11/28/18 09:00 12/27/18 08:59 Last 24 Hour Vital Signs Date Time Temp Pulse Resp B/P (MAP) Pulse Ox O2 Delivery O2 Flow Rate FiO2 11/28/18 04:00 68 11/28/18 04:00 97.5 57 20 123/59 (80) 96 11/28/18 00:00 97.8 63 20 132/55 (80) 97 11/28/18 00:00 61 11/27/18 21:00 Room Air 11/27/18 20:00 97.4 74 20 131/69 (89) 97 11/27/18 19:59 74 11/27/18 16:00 97.3 65 20 117/68 (84) 97 11/27/18 16:00 89 11/27/18 13:28 56 11/27/18 13:00 97.5 58 20 132/72 (92) 100 11/27/18 11:59 97.2 56 18 126/67 (86) 97 11/27/18 09:00 Room Air 11/27/18 08:33 58 133/67 11/27/18 08:29 133/67 11/27/18 08:00 97.5 58 17 133/67 (89) 98 11/27/18 04:36 97.1 57 18 138/74 (95) 97 11/27/18 00:32 97.4 55 18 154/82 (106) 100 11/26/18 23:07 Room Air 11/26/18 23:05 97.3 64 164/74 (104) 11/26/18 22:30 96.7 61 19 187/85 (119) 96 11/26/18 22:00 57 16 142/87 97 Room Air 11/26/18 18:24 98.4 65 20 171/69 99 Room Air 11/26/18 18:13 98.2 61 16 165/72 (103) 94 Room Air Intake and Output 11/27/18 11/28/18 19:00 07:00 Intake Total 195 ml 560 ml Output Total 1150 ml Balance 195 ml -590 ml Intake Oral 140 ml 560 ml IV Total 55 ml Output Urine Total 1150 ml # Voids 3 3 # Bowel Movements 1 1 Labs Test 11/26/18 18:25 11/26/18 18:56 11/27/18 05:10 11/27/18 08:35 White Blood Count 1.8 K/UL (4.8-10.8) 1.4 K/UL (4.8-10.8) Red Blood Count 3.40 M/UL (4.70-6.10) 3.47 M/UL (4.70-6.10) Hemoglobin 10.3 G/DL (14.2-18.0) 10.5 G/DL (14.2-18.0) Hematocrit 30.7 % (42.0-52.0) 32.4 % (42.0-52.0) Mean Corpuscular Volume 90 FL (80-99) 93 FL (80-99) Mean Corpuscular Hemoglobin 30.3 PG (27.0-31.0) 30.2 PG (27.0-31.0) Mean Corpuscular Hemoglobin Concent 33.6 G/DL (32.0-36.0) 32.4 G/DL (32.0-36.0) Red Cell Distribution Width 15.4 % (11.6-14.8) 15.6 % (11.6-14.8) Platelet Count 115 K/UL (150-450) 100 K/UL (150-450) Mean Platelet Volume 11.5 FL (6.5-10.1) 11.2 FL (6.5-10.1) Neutrophils (%) (Auto) % (45.0-75.0) % (45.0-75.0) Lymphocytes (%) (Auto) % (20.0-45.0) % (20.0-45.0) Monocytes (%) (Auto) % (1.0-10.0) % (1.0-10.0) Eosinophils (%) (Auto) % (0.0-3.0) % (0.0-3.0) Basophils (%) (Auto) % (0.0-2.0) % (0.0-2.0) Differential Total Cells Counted 100 100 Neutrophils % (Manual) 50 % (45-75) 32 % (45-75) Lymphocytes % (Manual) 36 % (20-45) 50 % (20-45) Monocytes % (Manual) 8 % (1-10) 15 % (1-10) Eosinophils % (Manual) 3 % (0-3) 3 % (0-3) Basophils % (Manual) 0 % (0-2) 0 % (0-2) Band Neutrophils 3 % (0-8) 0 % (0-8) Nucleated Red Blood Cells 1 /100 WBC Platelet Estimate Decreased Decreased Platelet Morphology Giant Platelets 1+ 1+ Anisocytosis 1+ 1+ Sodium Level 139 MMOL/L (136-145) Potassium Level 3.9 MMOL/L (3.5-5.1) Chloride Level 103 MMOL/L (98-107) Carbon Dioxide Level 25 MMOL/L (21-32) Anion Gap 11 mmol/L (5-15) Blood Urea Nitrogen 22 mg/dL (7-18) Creatinine 1.3 MG/DL (0.55-1.30) Estimat Glomerular Filtration Rate mL/min (>60) Glucose Level 105 MG/DL (74-106) Lactic Acid Level 1.20 mmol/L (0.4-2.0) Calcium Level 9.3 MG/DL (8.5-10.1) Total Bilirubin 0.4 MG/DL (0.2-1.0) Aspartate Amino Transf (AST/SGOT) 21 U/L (15-37) Alanine Aminotransferase (ALT/SGPT) 17 U/L (12-78) Alkaline Phosphatase 109 U/L (46-116) Pro-B-Type Natriuretic Peptide 147 pg/mL (0-125) Total Protein 8.2 G/DL (6.4-8.2) Albumin 4.6 G/DL (3.4-5.0) Globulin 3.6 g/dL Albumin/Globulin Ratio 1.3 (1.0-2.7) Urine Color Pale yellow Urine Appearance Clear Urine pH 6 (4.5-8.0) Urine Specific Gorin 1.010 (1.005-1.035) Urine Protein Negative (NEGATIVE) Urine Glucose (UA) Negative (NEGATIVE) Urine Ketones Negative (NEGATIVE) Urine Blood Negative (NEGATIVE) Urine Nitrite Negative (NEGATIVE) Urine Bilirubin Negative (NEGATIVE) Urine Urobilinogen Normal MG/DL (0.0-1.0) Urine Leukocyte Esterase 1+ (NEGATIVE) Urine RBC 0 /HPF (0 - 0) Urine WBC 5-10 /HPF (0 - 0) Urine Squamous Epithelial Cells Few /LPF (NONE/OCC) Urine Bacteria Occasional /HPF (NONE) Polychromasia 1+ Prostate Specific Antigen 12.18 ng/mL (0.13-4.0) HIV (1&2) Antibody Rapid Negative (NEGATIVE) Test 11/28/18 05:47 Micro Microbiology Date/Time Source Procedure Growth Status 11/27/18 09:15 Urine,Clean Catch Urine Culture - Preliminary Mixed Urogenital Contaminants Resulted Height (Feet): 5 Height (Inches): 8.00 Weight (Pounds): 160 Objective Physical Exam: Vitals: reviewed General Appearance: NAD HEENT: normocephalic, atraumatic Neck: non-tender, normal alignment Respiratory/Chest: normal breath sounds bilaterally Cardiovascular/Chest: normal peripheral pulses, normal rate Abdomen: normal bowel sounds, soft, nontender Extremities: normal range of motion Allyssa Bass NP Nov 28, 2018 07:26
[2018-11-28 08:00] VITALS: BP 125/60
[2018-11-28] MEDS: Sertraline 100mg tab ORAL SCH (09:05)
[2018-11-28] MEDS: cefTRIAXone 1 GM in D5W 55 ML IVPB SCH (09:07)
--- NOTE | 2018-11-28 09:20 | Diagnostic Imaging Report ---
APPROVED REPORT CPT Code: 11003 Vascular Symptoms Comments: WEAKNESS. CAROTID (BILATERAL) - Imaging reveals no significant plaque within the right and left extracranial carotid arteries. The Doppler spectral flow analysis is within normal limits throughout the extracranial carotid arteries bilaterally. VERTEBRAL- The vertebral arteries are within normal limits.
--- NOTE | 2018-11-28 10:43 | Consultation ---
Consult Note Consult Note asked to evaluate for renal consult , HTN , and fluid and electrolyte management ER: 88 yo male presents ED for evaluation. Sent in from [facility] today for abnormal labs. Had recent lab work which showed white count of 2.3. History of leukemia. Patient states he feels okay he denies weakness. Denies fevers or chills. States he does have some dysuria as well. History of prior bladder infections. No other aggravating or relieving factors. Denies any other associated symptoms Allergies: BUSPIRONE (Unverified Allergy, Unknown, 11/16/15) LISINOPRIL (Unverified Allergy, Unknown, 11/16/15) Past Medical History: No History, Except For Hx Cardiac Problems: Yes - HTN, Anemia, Thrombocytopenia Hx Diabetes: No - CHRONIC KIDNEY DISEASE Hx Cancer: Yes - LEUKEMIA Hx Gastrointestinal Problems: Yes - GERD History Of Psychiatric Problem: Yes - Anxiety, Major depression, psychosis Hx Neurological Problems: Yes - Encephalopathy, dementia Hx Dementia: Yes poor historian examined data reviewed Assessment/Plan Pyuria, urinary tract infection. Azotemia Pancytopenia. elevated PSA and CEA Bradycardia. 1st degree AV block Hypertension. Depression. Anxiety. Dementia. Glaucoma. Plan check labs, Anemia downs Adjust BP meds Monitor renal parameters Maxim Stoll MD Nov 28, 2018 10:43
[2018-11-28 10:55] LABS: BASOPHILS % (AUTO) 0.5 % (0.0-2.0); EOSINOPHILS % (AUTO) 0.6 % (0.0-3.0); HEMOGLOBIN 10.9 G/DL (14.2-18.0); LYMPHOCYTES % (AUTO) 5.8 % (20.0-45.0); MEAN CORPUSCULAR VOLUME 94 FL (80-99); MONOCYTES % (AUTO) 8.2 % (1.0-10.0); NEUTROPHILS % (AUTO) 84.9 % (45.0-75.0); PLATELET COUNT 112 K/UL (150-450); RED BLOOD COUNT 3.61 M/UL (4.70-6.10); RED CELL DISTRIBUTION WIDTH 16.4 % (11.6-14.8)
[2018-11-28 11:31] LABS: ALANINE AMINOTRANSFERASE 22 U/L (12-78); ALBUMIN 3.9 G/DL (3.4-5.0); ALKALINE PHOSPHATASE 103 U/L (46-116); ANION GAP 12 mmol/L (5-15); ASPARTATE AMINO TRANSFERASE 17 U/L (15-37); BILIRUBIN,TOTAL 0.6 MG/DL (0.2-1.0); BLOOD UREA NITROGEN 22 mg/dL (7-18); CALCIUM 9.4 MG/DL (8.5-10.1); CARBON DIOXIDE 24 MMOL/L (21-32); CHLORIDE 104 MMOL/L (98-107); CHOLESTEROL 150 MG/DL (< 200); CREATININE 1.4 MG/DL (0.55-1.30); FERRITIN 462 NG/ML (8-388); GAMMA GLUTAMYL TRANSPEPTIDASE 33 U/L (5-85); HDL CHOLESTEROL 40 MG/DL (40-60); POTASSIUM 4.4 MMOL/L (3.5-5.1); SODIUM 140 MMOL/L (136-145); TRIGLYCERIDES 40 MG/DL (30-150)
[2018-11-28 11:45] LABS: % IRON SATURATION 29 % (15-50); IRON 75 ug/dL (50-175); TOTAL IRON BINDING CAPACITY 255 ug/dL (250-450)
[2018-11-28 12:00] VITALS: BP 108/52
[2018-11-28 16:00] VITALS: BP 135/56
--- NOTE | 2018-11-28 19:30 | NUR ---
NURSE NOTES: Received patient from Andreas RN. Patient in bed, awake and oriented x3, calm and cooperative. Bed in low position, locked, bed alarm on. Call light within reach. On room air, no s/s of respiratory distress.
--- NOTE | 2018-11-28 19:30 | Cardiac Electrophysiology PN ---
Assessment/Plan Assessment/Plan 1. Sinus bradycardia. The patient also has first-degree AV block. Better off clonidine. EF 60% 2. Hypertension. Continue amlodipine 5 mg daily 3. Pancytopenia. Further evaluation by Dr. Webb. 4. Dementia. 5. Elevated PSA level. Subjective Subjective Feeling better. No further bradycardia. Objective Last 24 Hour Vital Signs Date Time Temp Pulse Resp B/P (MAP) Pulse Ox O2 Delivery O2 Flow Rate FiO2 11/28/18 16:00 97.8 82 17 135/56 (82) 97 11/28/18 16:00 86 11/28/18 12:00 98.2 71 18 108/52 (70) 97 11/28/18 12:00 66 11/28/18 09:05 69 123/60 11/28/18 09:00 Room Air 11/28/18 08:00 98.1 69 18 125/60 (81) 95 11/28/18 08:00 65 11/28/18 04:00 68 11/28/18 04:00 97.5 57 20 123/59 (80) 96 11/28/18 00:00 97.8 63 20 132/55 (80) 97 11/28/18 00:00 61 11/27/18 21:00 Room Air 11/27/18 20:00 97.4 74 20 131/69 (89) 97 11/27/18 19:59 74 Intake and Output 11/27/18 11/28/18 19:00 07:00 Intake Total 195 ml 560 ml Output Total 1150 ml Balance 195 ml -590 ml Intake Oral 140 ml 560 ml IV Total 55 ml Output Urine Total 1150 ml # Voids 3 3 # Bowel Movements 1 1 Laboratory Tests Test 11/28/18 05:47 White Blood Count 16.0 K/UL (4.8-10.8) #H Red Blood Count 3.61 M/UL (4.70-6.10) L Hemoglobin 10.9 G/DL (14.2-18.0) L Hematocrit 34.0 % (42.0-52.0) L Mean Corpuscular Volume 94 FL (80-99) Mean Corpuscular Hemoglobin 30.3 PG (27.0-31.0) Mean Corpuscular Hemoglobin Concent 32.2 G/DL (32.0-36.0) Red Cell Distribution Width 16.4 % (11.6-14.8) H Platelet Count 112 K/UL (150-450) L Mean Platelet Volume 9.9 FL (6.5-10.1) Neutrophils (%) (Auto) 84.9 % (45.0-75.0) H Lymphocytes (%) (Auto) 5.8 % (20.0-45.0) L Monocytes (%) (Auto) 8.2 % (1.0-10.0) Eosinophils (%) (Auto) 0.6 % (0.0-3.0) Basophils (%) (Auto) 0.5 % (0.0-2.0) Sodium Level 140 MMOL/L (136-145) Potassium Level 4.4 MMOL/L (3.5-5.1) Chloride Level 104 MMOL/L (98-107) Carbon Dioxide Level 24 MMOL/L (21-32) Anion Gap 12 mmol/L (5-15) Blood Urea Nitrogen 22 mg/dL (7-18) H Creatinine 1.4 MG/DL (0.55-1.30) H Estimat Glomerular Filtration Rate mL/min (>60) Glucose Level 82 MG/DL (74-106) Hemoglobin A1c 5.9 % (4.3-6.0) Uric Acid 5.0 MG/DL (2.6-7.2) Calcium Level 9.4 MG/DL (8.5-10.1) Phosphorus Level 3.0 MG/DL (2.5-4.9) Magnesium Level 2.1 MG/DL (1.8-2.4) Iron Level 75 ug/dL (50-175) Total Iron Binding Capacity 255 ug/dL (250-450) Percent Iron Saturation 29 % (15-50) Unsaturated Iron Binding 180 ug/dL (112-346) Ferritin 462 NG/ML (8-388) H Total Bilirubin 0.6 MG/DL (0.2-1.0) Gamma Glutamyl Transpeptidase 33 U/L (5-85) Aspartate Amino Transf (AST/SGOT) 17 U/L (15-37) Alanine Aminotransferase (ALT/SGPT) 22 U/L (12-78) Alkaline Phosphatase 103 U/L (46-116) C-Reactive Protein, Quantitative 1.5 mg/dL (0.00-0.90) H Pro-B-Type Natriuretic Peptide 76 pg/mL (0-125) Total Protein 8.0 G/DL (6.4-8.2) Albumin 3.9 G/DL (3.4-5.0) Globulin 4.1 g/dL Albumin/Globulin Ratio 1.0 (1.0-2.7) Triglycerides Level 40 MG/DL (30-150) Cholesterol Level 150 MG/DL (< 200) LDL Cholesterol 104 mg/dL (<100) H HDL Cholesterol 40 MG/DL (40-60) Cholesterol/HDL Ratio 3.8 (3.3-4.4) Vitamin B12 Level 609 PG/ML (193-986) Folate 8.8 NG/ML (8.6-58.9) Thyroid Stimulating Hormone (TSH) 1.260 uiU/mL (0.358-3.740) Free Thyroxine 0.91 NG/DL (0.76-1.46) Microbiology Date/Time Source Procedure Growth Status 11/26/18 18:40 Blood Blood Culture - Preliminary NO GROWTH AFTER 24 HOURS Resulted 11/26/18 18:25 Blood Blood Culture - Preliminary NO GROWTH AFTER 24 HOURS Resulted 11/27/18 09:15 Urine,Clean Catch Urine Culture - Preliminary Mixed Urogenital Contaminants Resulted Objective HEAD AND NECK: No JVD or carotid bruits. LUNGS: Clear. CARDIOVASCULAR: Regular S1 and S2 with no gallop or murmur. Bradycardic. ABDOMEN: Soft. EXTREMITIES: No pitting edema. Aurelio Hood MD Nov 28, 2018 19:30
--- NOTE | 2018-11-28 19:35 | NUR ---
HAND-OFF: Report given to JOES G Kiryb. No acute s/s of distress noted.
[2018-11-28 20:00] VITALS: BP 143/63
[2018-11-28] MEDS: Tamsulosin 0.4mg cap ORAL SCH (21:00)
[2018-11-28] MEDS: Latanoprost 0.005% Opth 2.5ml Soln BOTH EYES SCH (21:01)
--- NOTE | 2018-11-28 21:27 | General Progress Note ---
Assessment/Plan Problem List: (1) HTN (hypertension) ICD Codes: I10 - Essential (primary) hypertension SNOMED: 98472634 (2) Pancytopenia ICD Codes: D61.818 - Other pancytopenia SNOMED: 955022288 (3) Abnormal laboratory test result ICD Codes: R89.9 - Unspecified abnormal finding in specimens from other organs , systems and tissues SNOMED: 064017278 Status: progressing Assessment/Plan: neutropenia uti bradycardia consulted dr buchanan no fever obs reviewed chart and labs Subjective ROS Limited/Unobtainable: Yes Allergies: Coded Allergies: BUSPIRONE (Unverified Allergy, Unknown, 11/16/15) LISINOPRIL (Unverified Allergy, Unknown, 11/16/15) Objective Last 24 Hour Vital Signs Date Time Temp Pulse Resp B/P (MAP) Pulse Ox O2 Delivery O2 Flow Rate FiO2 11/28/18 20:00 98.1 70 18 143/63 (89) 96 11/28/18 16:00 97.8 82 17 135/56 (82) 97 11/28/18 16:00 86 11/28/18 12:00 98.2 71 18 108/52 (70) 97 11/28/18 12:00 66 11/28/18 09:05 69 123/60 11/28/18 09:00 Room Air 11/28/18 08:00 98.1 69 18 125/60 (81) 95 11/28/18 08:00 65 11/28/18 04:00 68 11/28/18 04:00 97.5 57 20 123/59 (80) 96 11/28/18 00:00 97.8 63 20 132/55 (80) 97 11/28/18 00:00 61 Intake and Output 11/27/18 11/28/18 19:00 07:00 Intake Total 195 ml 560 ml Output Total 1150 ml Balance 195 ml -590 ml Intake Oral 140 ml 560 ml IV Total 55 ml Output Urine Total 1150 ml # Voids 3 3 # Bowel Movements 1 1 Laboratory Tests 11/28/18 05:47: White Blood Count 16.0#H, Red Blood Count 3.61L, Hemoglobin 10.9L, Hematocrit 34.0L, Mean Corpuscular Volume 94, Mean Corpuscular Hemoglobin 30.3, Mean Corpuscular Hemoglobin Concent 32.2, Red Cell Distribution Width 16.4H, Platelet Count 112L, Mean Platelet Volume 9.9, Neutrophils (%) (Auto) 84.9H, Lymphocytes (%) (Auto) 5.8L, Monocytes (%) (Auto) 8.2, Eosinophils (%) (Auto) 0.6, Basophils (%) (Auto) 0.5, Sodium Level 140, Potassium Level 4.4, Chloride Level 104, Carbon Dioxide Level 24, Anion Gap 12, Blood Urea Nitrogen 22H, Creatinine 1.4H, Estimat Glomerular Filtration Rate , Glucose Level 82, Hemoglobin A1c 5.9, Uric Acid 5.0, Calcium Level 9.4, Phosphorus Level 3.0, Magnesium Level 2.1, Iron Level 75, Total Iron Binding Capacity 255, Percent Iron Saturation 29, Unsaturated Iron Binding 180, Ferritin 462H, Total Bilirubin 0.6, Gamma Glutamyl Transpeptidase 33, Aspartate Amino Transf (AST/ SGOT) 17, Alanine Aminotransferase (ALT/SGPT) 22, Alkaline Phosphatase 103, C- Reactive Protein, Quantitative 1.5H, Pro-B-Type Natriuretic Peptide 76, Total Protein 8.0, Albumin 3.9, Globulin 4.1, Albumin/Globulin Ratio 1.0, Triglycerides Level 40, Cholesterol Level 150, LDL Cholesterol 104H, HDL Cholesterol 40, Cholesterol/HDL Ratio 3.8, Vitamin B12 Level 609, Folate 8.8, Thyroid Stimulating Hormone (TSH) 1.260, Free Thyroxine 0.91 Height (Feet): 5 Height (Inches): 8.00 Weight (Pounds): 160 General Appearance: confused Cardiovascular: normal rate, regular rhythm Respiratory/Chest: lungs clear Abdomen: soft Samira Dunne MD Nov 28, 2018 21:27
[2018-11-29 00:16] VITALS: BP 166/73
[2018-11-29 04:00] VITALS: BP 157/77
--- NOTE | 2018-11-29 06:58 | NUR ---
HAND-OFF: Report given to Andreas ARAIZA. Patient asleep in bed. No signs of respiratory distress. Plan of care endorsed.
--- NOTE | 2018-11-29 07:15 | NUR ---
NURSE NOTES: Pt received from JOSE G Kirby alert and oriented x3 with no acute s/s of distress noted. IV site asymptomatic and patent, R ac 20g on saline lock. Bed in lowest position, call light and belongings within reach. general activities therapist on - SR (86).
[2018-11-29 08:00] VITALS: BP 166/96
[2018-11-29] MEDS: Sertraline 100mg tab ORAL SCH (09:20)
[2018-11-29] MEDS: cefTRIAXone 1 GM in D5W 55 ML IVPB SCH (09:20)
--- NOTE | 2018-11-29 10:25 | Infectious Diseases Prog Note ---
Assessment/Plan Assessment/Plan IMPRESSION: 1. Pyuria, urine culture: mixed ángel 2. Pancytopenia.developed leukocytosis after receiving Filgrastim 3. Bradycardia. 4. Hypertension. 5. Chronic kidney disease, stage 2. 6. Depression. 7. Anxiety. 8. Dementia. 9. Glaucoma. RECOMMENDATION: Discontinue ceftriaxone Observe off antibiotic Subjective ROS Limited/Unobtainable: No Constitutional: Denies: fever HEENT: Reports: other - headache Respiratory: Reports: no symptoms Gastrointestinal/Abdominal: Reports: no symptoms Genitourinary: Reports: no symptoms Musculoskeletal: Reports: pain, other - in back Allergies: Coded Allergies: BUSPIRONE (Unverified Allergy, Unknown, 11/16/15) LISINOPRIL (Unverified Allergy, Unknown, 11/16/15) Objective Vital Signs Last 24 Hour Vital Signs Date Time Temp Pulse Resp B/P (MAP) Pulse Ox O2 Delivery O2 Flow Rate FiO2 11/29/18 09:20 82 133/70 11/29/18 08:00 98.1 89 20 166/96 (119) 95 11/29/18 04:00 98.0 77 18 157/77 (103) 95 11/29/18 04:00 69 11/29/18 00:16 97.5 66 18 166/73 (104) 96 11/28/18 23:46 80 11/28/18 21:00 Room Air 11/28/18 20:00 98.1 70 18 143/63 (89) 96 11/28/18 19:50 65 11/28/18 16:00 97.8 82 17 135/56 (82) 97 11/28/18 16:00 86 11/28/18 12:00 98.2 71 18 108/52 (70) 97 11/28/18 12:00 66 Height (Feet): 5 Height (Inches): 8.00 Weight (Pounds): 160 General Appearance: no acute distress Respiratory/Chest: lungs clear Cardiovascular: normal rate Abdomen: soft, non tender Extremities: no edema Neurologic/Psychiatric: alert, responsive Microbiology Date/Time Source Procedure Growth Status 11/26/18 18:40 Blood Blood Culture - Preliminary NO GROWTH AFTER 48 HOURS Resulted 11/26/18 18:25 Blood Blood Culture - Preliminary NO GROWTH AFTER 48 HOURS Resulted 11/27/18 09:15 Urine,Clean Catch Urine Culture - Final Mixed Urogenital Contaminants Complete 11/26/18 22:00 Rectum VRE Culture - Final NO VANCOMYCIN RESISTANT ENTEROCOCCUS ... Complete Current Medications Medications (Trade) Dose Ordered Sig/Joellen Route PRN Reason Start Time Stop Time Status Last Admin Dose Admin Acetaminophen (Tylenol) 650 mg Q4H PRN ORAL For Pain 11/27/18 14:26 12/27/18 14:25 11/29/18 05:36 Amlodipine Besylate (Norvasc) 5 mg DAILY ORAL 11/28/18 09:00 12/27/18 08:59 11/29/18 09:20 Ceftriaxone Sodium 1 gm/ Dextrose 55 ml @ 110 mls/hr DAILY IVPB 11/28/18 09:00 12/04/18 08:59 11/29/18 09:20 Latanoprost (Xalatan) 1 drop BEDTIME BOTH EYES 11/27/18 21:00 12/27/18 20:59 11/28/18 21:01 Multivitamins (Multivitamins) 1 tab DAILY ORAL 11/28/18 09:00 12/27/18 08:59 11/29/18 09:20 Pantoprazole (Protonix) 40 mg ACBREAKFAST ORAL 11/28/18 06:30 12/27/18 06:29 11/29/18 05:36 Sennosides (Senokot) 17.2 mg DAILYPRN PRN ORAL Constipation 11/28/18 00:15 12/28/18 00:14 Sertraline HCl (Zoloft) 200 mg DAILY ORAL 11/28/18 09:00 12/27/18 08:59 11/29/18 09:20 Tamsulosin HCl (Flomax) 0.4 mg BEDTIME ORAL 11/28/18 21:00 12/28/18 20:59 11/28/18 21:00 Alexandre Curtis MD Nov 29, 2018 10:25
[2018-11-29 12:00] VITALS: BP 152/72
--- NOTE | 2018-11-29 12:35 | Nephrology Progress Note ---
Assessment/Plan Problem List: (1) HTN (hypertension) (2) Pancytopenia (3) UTI (urinary tract infection) Assessment Pyuria, urinary tract infection. Azotemia Pancytopenia. elevated PSA and CEA Bradycardia. 1st degree AV block Hypertension. Depression. Anxiety. Dementia. Glaucoma. Plan Plan check labs, Anemia downs Adjust BP meds Monitor renal parameters Subjective ROS Limited/Unobtainable: No Constitutional: Reports: malaise Objective Objective Last 24 Hour Vital Signs Date Time Temp Pulse Resp B/P (MAP) Pulse Ox O2 Delivery O2 Flow Rate FiO2 11/29/18 12:00 80 11/29/18 12:00 97.9 70 20 152/72 (98) 95 11/29/18 09:20 82 133/70 11/29/18 09:00 Room Air 11/29/18 08:00 80 11/29/18 08:00 98.1 89 20 166/96 (119) 95 11/29/18 04:00 98.0 77 18 157/77 (103) 95 11/29/18 04:00 69 11/29/18 00:16 97.5 66 18 166/73 (104) 96 11/28/18 23:46 80 11/28/18 21:00 Room Air 11/28/18 20:00 98.1 70 18 143/63 (89) 96 11/28/18 19:50 65 11/28/18 16:00 97.8 82 17 135/56 (82) 97 11/28/18 16:00 86 Intake and Output 11/28/18 11/29/18 19:00 07:00 Intake Total 250 ml 240 ml Output Total 300 ml 500 ml Balance -50 ml -260 ml Intake Oral 250 ml Other 240 ml Output Urine Total 300 ml 500 ml # Bowel Movements 1 1 Height (Feet): 5 Height (Inches): 8.00 Weight (Pounds): 160 General Appearance: no apparent distress Cardiovascular: normal rate Respiratory/Chest: lungs clear Abdomen: distended Objective no change Maxim Stoll MD Nov 29, 2018 12:35
[2018-11-29 16:00] VITALS: BP 147/93
--- NOTE | 2018-11-29 16:17 | Cardiac Electrophysiology PN ---
Assessment/Plan Assessment/Plan 1. Sinus bradycardia. The patient also has first-degree AV block. Better off clonidine. EF 60% 2. Hypertension. Continue amlodipine 5 mg daily 3. Pancytopenia. ? etiology. Got Neupogen by Dr. Webb. 4. Dementia. 5. Elevated PSA level. JULITO RN Subjective Subjective In SR.No CP or SOB. Abx DCed today. No further bradycardia. Objective Last 24 Hour Vital Signs Date Time Temp Pulse Resp B/P (MAP) Pulse Ox O2 Delivery O2 Flow Rate FiO2 11/29/18 12:00 80 11/29/18 12:00 97.9 70 20 152/72 (98) 95 11/29/18 09:20 82 133/70 11/29/18 09:00 Room Air 11/29/18 08:00 80 11/29/18 08:00 98.1 89 20 166/96 (119) 95 11/29/18 04:00 98.0 77 18 157/77 (103) 95 11/29/18 04:00 69 11/29/18 00:16 97.5 66 18 166/73 (104) 96 11/28/18 23:46 80 11/28/18 21:00 Room Air 11/28/18 20:00 98.1 70 18 143/63 (89) 96 11/28/18 19:50 65 Intake and Output 11/28/18 11/29/18 19:00 07:00 Intake Total 250 ml 240 ml Output Total 300 ml 500 ml Balance -50 ml -260 ml Intake Oral 250 ml Other 240 ml Output Urine Total 300 ml 500 ml # Bowel Movements 1 1 Microbiology Date/Time Source Procedure Growth Status 11/26/18 18:40 Blood Blood Culture - Preliminary NO GROWTH AFTER 48 HOURS Resulted 11/26/18 18:25 Blood Blood Culture - Preliminary NO GROWTH AFTER 48 HOURS Resulted 11/26/18 22:00 Nasal Nares MRSA Culture - Final NO METHICILLIN RESISTANT STAPH AUREUS... Complete 11/27/18 09:15 Urine,Clean Catch Urine Culture - Final Mixed Urogenital Contaminants Complete 11/26/18 22:00 Rectum VRE Culture - Final NO VANCOMYCIN RESISTANT ENTEROCOCCUS ... Complete Objective HEAD AND NECK: No JVD or carotid bruits. LUNGS: Clear. CARDIOVASCULAR: Regular S1 and S2 with no gallop or murmur. Bradycardic. ABDOMEN: Soft. EXTREMITIES: No pitting edema. Aurelio Hood MD Nov 29, 2018 16:17
--- NOTE | 2018-11-29 19:30 | NUR ---
NURSE NOTES: RECEIVED PATIENT LYING IN BED, AWAKE, ALERT/ORIENTED X3, VERBALLY RESPONSIVE, DENIES PAIN. IV SITE INTACT TO RIGHT AC/GAUGE 20, NO REDNESS/SWELLING NOTED, FLUSH WITHOUT DIFFICULTY. NO SIGNS AND SYMPTOMS OF ACUTE CARDIO RESPIRATORY DISTRESS/SHORTNESS OF BREATH, DENIES CHEST PAIN, NO PERIPHERAL EDEMA NOTED. NO REPORT OF GI DISCOMFORT, NO N/V/D. URINAL AT BEDSIDE, BRP. SIDE RAILS UP X3/BED IN LOWEST POSITION FOR SAFETY. ENCOURAGED PATIENT TO UTILIZE CALL LIGHT FOR ASSISTANCE, VERBALIZED UNDERSTANDING. CONTINUE WITH CURRENT PLAN OF CARE. NAD. NEUTROPENIC PRECAUTIONS DC'D.
--- NOTE | 2018-11-29 19:39 | NUR ---
HAND-OFF: Report given to ABRAN Loyd. No acute s/s of distress noted.
[2018-11-29 20:00] VITALS: BP_SYST 141; BP_SYST 156; BP_DIAS 79; BP_DIAS 88
[2018-11-29] MEDS: Tamsulosin 0.4mg cap ORAL SCH (21:04)
[2018-11-29] MEDS: Latanoprost 0.005% Opth 2.5ml Soln BOTH EYES SCH (21:05)
--- NOTE | 2018-11-29 21:56 | General Progress Note ---
Assessment/Plan Problem List: (1) HTN (hypertension) ICD Codes: I10 - Essential (primary) hypertension SNOMED: 34399978 (2) Pancytopenia ICD Codes: D61.818 - Other pancytopenia SNOMED: 435840773 (3) Abnormal laboratory test result ICD Codes: R89.9 - Unspecified abnormal finding in specimens from other organs , systems and tissues SNOMED: 319552748 Status: progressing Assessment/Plan: neutropenia uti bradycardia no fever no acute events reviewed chart and labs Subjective ROS Limited/Unobtainable: Yes Allergies: Coded Allergies: BUSPIRONE (Unverified Allergy, Unknown, 11/16/15) LISINOPRIL (Unverified Allergy, Unknown, 11/16/15) Objective Last 24 Hour Vital Signs Date Time Temp Pulse Resp B/P (MAP) Pulse Ox O2 Delivery O2 Flow Rate FiO2 11/29/18 20:00 72 11/29/18 17:17 70 152/72 11/29/18 16:00 99.0 85 20 147/93 (111) 97 11/29/18 16:00 91 11/29/18 12:00 80 11/29/18 12:00 97.9 70 20 152/72 (98) 95 11/29/18 09:20 82 133/70 11/29/18 09:00 Room Air 11/29/18 08:00 80 11/29/18 08:00 98.1 89 20 166/96 (119) 95 11/29/18 04:00 98.0 77 18 157/77 (103) 95 11/29/18 04:00 69 11/29/18 00:16 97.5 66 18 166/73 (104) 96 11/28/18 23:46 80 Intake and Output 11/28/18 11/29/18 19:00 07:00 Intake Total 360 ml 240 ml Output Total 300 ml 500 ml Balance 60 ml -260 ml Intake Oral 250 ml IV Total 110 ml Other 240 ml Output Urine Total 300 ml 500 ml # Bowel Movements 1 1 Height (Feet): 5 Height (Inches): 8.00 Weight (Pounds): 160 Cardiovascular: normal rate Respiratory/Chest: lungs clear Abdomen: soft Samira Dunne MD Nov 29, 2018 21:56
--- NOTE | 2018-11-29 22:33 | Hematology/Onc Progress Note ---
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 GREATLY APPRECIATE CONSULTATION. Subjective Allergies: Coded Allergies: BUSPIRONE (Unverified Allergy, Unknown, 11/16/15) LISINOPRIL (Unverified Allergy, Unknown, 11/16/15) Subjective 11/28: No acute events, pt resting no distress. 11/29: US Abd and tumor markers reviewed Objective Objective Current Medications Medications (Trade) Dose Ordered Sig/Joellen Route PRN Reason Start Time Stop Time Status Last Admin Dose Admin Acetaminophen (Tylenol) 650 mg Q4H PRN ORAL For Pain 11/27/18 14:26 12/27/18 14:25 11/29/18 17:19 Amlodipine Besylate (Norvasc) 5 mg BID ORAL 11/29/18 18:00 12/27/18 08:59 11/29/18 17:17 Latanoprost (Xalatan) 1 drop BEDTIME BOTH EYES 11/27/18 21:00 12/27/18 20:59 11/29/18 21:05 Multivitamins (Multivitamins) 1 tab DAILY ORAL 11/28/18 09:00 12/27/18 08:59 11/29/18 09:20 Pantoprazole (Protonix) 40 mg ACBREAKFAST ORAL 11/28/18 06:30 12/27/18 06:29 11/29/18 05:36 Sennosides (Senokot) 17.2 mg DAILYPRN PRN ORAL Constipation 11/28/18 00:15 12/28/18 00:14 Sertraline HCl (Zoloft) 200 mg DAILY ORAL 11/28/18 09:00 12/27/18 08:59 11/29/18 09:20 Tamsulosin HCl (Flomax) 0.4 mg BEDTIME ORAL 11/28/18 21:00 12/28/18 20:59 11/29/18 21:04 Last 24 Hour Vital Signs Date Time Temp Pulse Resp B/P (MAP) Pulse Ox O2 Delivery O2 Flow Rate FiO2 11/29/18 20:00 72 11/29/18 17:17 70 152/72 11/29/18 16:00 99.0 85 20 147/93 (111) 97 11/29/18 16:00 91 11/29/18 12:00 80 11/29/18 12:00 97.9 70 20 152/72 (98) 95 11/29/18 09:20 82 133/70 11/29/18 09:00 Room Air 11/29/18 08:00 80 11/29/18 08:00 98.1 89 20 166/96 (119) 95 11/29/18 04:00 98.0 77 18 157/77 (103) 95 11/29/18 04:00 69 11/29/18 00:16 97.5 66 18 166/73 (104) 96 11/28/18 23:46 80 11/28/18 21:00 Room Air 11/28/18 20:00 98.1 70 18 143/63 (89) 96 11/28/18 19:50 65 11/28/18 16:00 97.8 82 17 135/56 (82) 97 11/28/18 16:00 86 11/28/18 12:00 98.2 71 18 108/52 (70) 97 11/28/18 12:00 66 11/28/18 09:05 69 123/60 11/28/18 09:00 Room Air 11/28/18 08:00 98.1 69 18 125/60 (81) 95 11/28/18 08:00 65 11/28/18 04:00 68 11/28/18 04:00 97.5 57 20 123/59 (80) 96 11/28/18 00:00 97.8 63 20 132/55 (80) 97 11/28/18 00:00 61 Intake and Output 11/28/18 11/29/18 19:00 07:00 Intake Total 360 ml 240 ml Output Total 300 ml 500 ml Balance 60 ml -260 ml Intake Oral 250 ml IV Total 110 ml Other 240 ml Output Urine Total 300 ml 500 ml # Bowel Movements 1 1 Labs Test 11/27/18 05:10 11/27/18 08:35 11/28/18 05:47 White Blood Count 1.4 K/UL (4.8-10.8) 16.0 K/UL (4.8-10.8) Red Blood Count 3.47 M/UL (4.70-6.10) 3.61 M/UL (4.70-6.10) Hemoglobin 10.5 G/DL (14.2-18.0) 10.9 G/DL (14.2-18.0) Hematocrit 32.4 % (42.0-52.0) 34.0 % (42.0-52.0) Mean Corpuscular Volume 93 FL (80-99) 94 FL (80-99) Mean Corpuscular Hemoglobin 30.2 PG (27.0-31.0) 30.3 PG (27.0-31.0) Mean Corpuscular Hemoglobin Concent 32.4 G/DL (32.0-36.0) 32.2 G/DL (32.0-36.0) Red Cell Distribution Width 15.6 % (11.6-14.8) 16.4 % (11.6-14.8) Platelet Count 100 K/UL (150-450) 112 K/UL (150-450) Mean Platelet Volume 11.2 FL (6.5-10.1) 9.9 FL (6.5-10.1) Neutrophils (%) (Auto) % (45.0-75.0) 84.9 % (45.0-75.0) Lymphocytes (%) (Auto) % (20.0-45.0) 5.8 % (20.0-45.0) Monocytes (%) (Auto) % (1.0-10.0) 8.2 % (1.0-10.0) Eosinophils (%) (Auto) % (0.0-3.0) 0.6 % (0.0-3.0) Basophils (%) (Auto) % (0.0-2.0) 0.5 % (0.0-2.0) Differential Total Cells Counted 100 Neutrophils % (Manual) 32 % (45-75) Lymphocytes % (Manual) 50 % (20-45) Monocytes % (Manual) 15 % (1-10) Eosinophils % (Manual) 3 % (0-3) Basophils % (Manual) 0 % (0-2) Band Neutrophils 0 % (0-8) Platelet Estimate Decreased Platelet Morphology Giant Platelets 1+ Polychromasia 1+ Anisocytosis 1+ Carcinoembryonic Antigen 6.9 ng/mL (0.0-4.7) Prostate Specific Antigen 12.18 ng/mL (0.13-4.0) Hepatitis A IgM Antibody Negative (Negative) Hepatitis B Surface Antigen Negative (Negative) Hepatitis B Core IgM Antibody Negative (Negative) Hepatitis C Antibody <0.1 s/co ratio HIV (1&2) Antibody Rapid Negative (NEGATIVE) Sodium Level 140 MMOL/L (136-145) Potassium Level 4.4 MMOL/L (3.5-5.1) Chloride Level 104 MMOL/L (98-107) Carbon Dioxide Level 24 MMOL/L (21-32) Anion Gap 12 mmol/L (5-15) Blood Urea Nitrogen 22 mg/dL (7-18) Creatinine 1.4 MG/DL (0.55-1.30) Estimat Glomerular Filtration Rate mL/min (>60) Glucose Level 82 MG/DL (74-106) Hemoglobin A1c 5.9 % (4.3-6.0) Uric Acid 5.0 MG/DL (2.6-7.2) Calcium Level 9.4 MG/DL (8.5-10.1) Phosphorus Level 3.0 MG/DL (2.5-4.9) Magnesium Level 2.1 MG/DL (1.8-2.4) Iron Level 75 ug/dL (50-175) Total Iron Binding Capacity 255 ug/dL (250-450) Percent Iron Saturation 29 % (15-50) Unsaturated Iron Binding 180 ug/dL (112-346) Ferritin 462 NG/ML (8-388) Total Bilirubin 0.6 MG/DL (0.2-1.0) Gamma Glutamyl Transpeptidase 33 U/L (5-85) Aspartate Amino Transf (AST/SGOT) 17 U/L (15-37) Alanine Aminotransferase (ALT/SGPT) 22 U/L (12-78) Alkaline Phosphatase 103 U/L (46-116) C-Reactive Protein, Quantitative 1.5 mg/dL (0.00-0.90) Pro-B-Type Natriuretic Peptide 76 pg/mL (0-125) Total Protein 8.0 G/DL (6.4-8.2) Albumin 3.9 G/DL (3.4-5.0) Globulin 4.1 g/dL Albumin/Globulin Ratio 1.0 (1.0-2.7) Triglycerides Level 40 MG/DL (30-150) Cholesterol Level 150 MG/DL (< 200) LDL Cholesterol 104 mg/dL (<100) HDL Cholesterol 40 MG/DL (40-60) Cholesterol/HDL Ratio 3.8 (3.3-4.4) Vitamin B12 Level 609 PG/ML (193-986) Folate 8.8 NG/ML (8.6-58.9) Thyroid Stimulating Hormone (TSH) 1.260 uiU/mL (0.358-3.740) Free Thyroxine 0.91 NG/DL (0.76-1.46) Height (Feet): 5 Height (Inches): 8.00 Weight (Pounds): 160 Objective Physical Exam: Vitals: reviewed General Appearance: NAD HEENT: normocephalic, atraumatic Neck: non-tender, normal alignment Respiratory/Chest: normal breath sounds bilaterally Cardiovascular/Chest: normal peripheral pulses, normal rate Abdomen: normal bowel sounds, soft, nontender Extremities: normal range of motion Allyssa Bass NP Nov 29, 2018 22:33
[2018-11-30] VITALS: BP 153/75
[2018-11-30 04:00] VITALS: BP 144/79
--- NOTE | 2018-11-30 04:55 | Cardiac Electrophysiology PN ---
Assessment/Plan Assessment/Plan 1. Sinus bradycardia. Also has first-degree AV block. Better off clonidine. EF 60% 2. Hypertension. Continue amlodipine 5 mg daily 3. Pancytopenia. ? etiology. Got Neupogen by Dr. Webb. 4. Dementia. 5. Elevated PSA level. JULITO RN Subjective Subjective In SR. No CP or SOB. No further bradycardia. Objective Last 24 Hour Vital Signs Date Time Temp Pulse Resp B/P (MAP) Pulse Ox O2 Delivery O2 Flow Rate FiO2 11/30/18 00:00 97.5 66 18 153/75 (101) 95 11/29/18 21:00 Room Air 11/29/18 20:00 72 11/29/18 20:00 97.8 72 18 156/88 (110) 95 11/29/18 17:17 70 152/72 11/29/18 16:00 99.0 85 20 147/93 (111) 97 11/29/18 16:00 91 11/29/18 12:00 80 11/29/18 12:00 97.9 70 20 152/72 (98) 95 11/29/18 09:20 82 133/70 11/29/18 09:00 Room Air 11/29/18 08:00 80 11/29/18 08:00 98.1 89 20 166/96 (119) 95 Intake and Output 11/29/18 11/30/18 18:59 06:59 Intake Total 460 ml 120 ml Output Total 650 ml 200 ml Balance -190 ml -80 ml Intake Oral 350 ml 120 ml IV Total 110 ml Output Urine Total 650 ml 200 ml # Bowel Movements 1 Microbiology Date/Time Source Procedure Growth Status 11/27/18 09:15 Urine,Clean Catch Urine Culture - Final Mixed Urogenital Contaminants Complete Objective HEAD AND NECK: No JVD or carotid bruits. LUNGS: Clear. CARDIOVASCULAR: Regular S1 and S2 with no gallop or murmur. Bradycardic. ABDOMEN: Soft. EXTREMITIES: No pitting edema. uArelio Hood MD Nov 30, 2018 04:55
--- NOTE | 2018-11-30 06:21 | NUR ---
NURSE NOTES: RESTED WELL, NO SIGNIFICANT CHANGE OF CONDITION NOTED THROUGHOUT THE NIGHT. SAFETY MAINTAINED. NAD.
[2018-11-30 08:00] VITALS: BP 142/76
--- NOTE | 2018-11-30 08:09 | NUR ---
NURSE NOTES: Report received from JOSE G Cooper. Pt is resting in bed, in stable condition. alert and oriented x3. Breathing is even and unlabored with 2 liter Nasal Cannula. No acute distress noted at this time. Bed in lowest position with brake engaged and side rails up x2. Call light and side table placed within reach. Bed alarm on. Will continue to monitor.
[2018-11-30] MEDS: Sertraline 100mg tab ORAL SCH (09:04)
--- NOTE | 2018-11-30 09:50 | Cardiology Report ---
APPROVED REPORT EXAM: Two-dimensional and M-mode echocardiogram with Doppler and color Doppler. INDICATION Bradycardia M-Mode DIMENSIONS IVSd1.1 (0.7-1.1cm)Left Atrium (MM)3.0 (1.6-4.0cm) LVDd4.4 (3.5-5.6cm)Aortic Root2.7 (2.0-3.7cm) PWd1.1 (0.7-1.1cm)Aortic Cusp Exc.2.0 (1.5-2.0cm) IVSs1.3 cm LVDs2.6 (2.5-4.0cm) PWs1.6 cm Normal left ventricular chamber size, systolic function and wall motion. Left ventricular ejection fraction estimated to be 60 %. Borderline left ventricular hypertrophy. Anterior Echo-free space, may be due to pericardial fat or effusion. All other cardiac chamber sizes are within normal limits. Focal aortic valve sclerosis with adequate cusp excursion. Thickened mitral valve leaflets with normal excursion. Mild mitral annulus and aortic root calcification. Normal pulmonic valve structure. Normal tricuspid valve structure. IVC is normal in size with physiological collapse. A color flow and spectral Doppler study was performed and revealed: No aortic regurgitation. Trace mitral regurgitation. Mitral diastolic velocities suggest mild left ventricular diastolic dysfunction (Grade I). Trace tricuspid regurgitation. Tricuspid systolic velocities suggests peak right ventricular systolic pressure of 10 mmHg. No pulmonic regurgitation present.
--- NOTE | 2018-11-30 10:50 | NUR ---
DISCHARGE PLAN DISCHARGE ORDER NOTED FAXED CLINICALS TO [facility] T: [phone] F: [phone] *AWAIT CONFIRMATION AND ROOM NUMBER
[2018-11-30 12:00] VITALS: BP 109/81
--- NOTE | 2018-11-30 12:48 | NUR ---
DISCHARGE PLANNED PATIENT IS RETURNING TO [facility] ROOM 5B SKILLED T: [phone] FOR NURSE TO NURSE REPORT [facility] HAS BEEN ARRANGED FOR [address] [employer]
--- NOTE | 2018-11-30 13:04 | Nephrology Progress Note ---
Assessment/Plan Problem List: (1) HTN (hypertension) (2) Pancytopenia (3) UTI (urinary tract infection) Assessment Pyuria, urinary tract infection. Azotemia Pancytopenia. elevated PSA and CEA Bradycardia. 1st degree AV block Hypertension. Depression. Anxiety. Dementia. Glaucoma. Plan Plan check labs, Anemia downs Adjust BP meds Monitor renal parameters Subjective ROS Limited/Unobtainable: No Objective Objective Last 24 Hour Vital Signs Date Time Temp Pulse Resp B/P (MAP) Pulse Ox O2 Delivery O2 Flow Rate FiO2 11/30/18 12:00 97.6 74 20 109/81 (90) 95 11/30/18 09:03 81 142/76 11/30/18 09:00 Room Air 11/30/18 08:00 97.2 81 22 142/76 (98) 98 11/30/18 08:00 80 11/30/18 04:00 66 11/30/18 04:00 97.6 66 18 144/79 (100) 98 11/30/18 00:00 97.5 66 18 153/75 (101) 95 11/29/18 21:00 Room Air 11/29/18 20:00 72 11/29/18 20:00 97.8 72 18 156/88 (110) 95 11/29/18 17:17 70 152/72 11/29/18 16:00 99.0 85 20 147/93 (111) 97 11/29/18 16:00 91 Intake and Output 11/29/18 11/30/18 19:00 07:00 Intake Total 460 ml 240 ml Output Total 650 ml 500 ml Balance -190 ml -260 ml Intake Oral 350 ml 240 ml IV Total 110 ml Output Urine Total 650 ml 500 ml # Bowel Movements 1 Height (Feet): 5 Height (Inches): 8.00 Weight (Pounds): 160 General Appearance: no apparent distress Objective no change Maxim Stoll MD Nov 30, 2018 13:04
--- NOTE | 2018-11-30 13:23 | Hematology/Onc Progress Note ---
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 GREATLY APPRECIATE CONSULTATION. Subjective Allergies: Coded Allergies: BUSPIRONE (Unverified Allergy, Unknown, 11/16/15) LISINOPRIL (Unverified Allergy, Unknown, 11/16/15) Subjective Subjective Allergies: Coded Allergies: BUSPIRONE (Unverified Allergy, Unknown, 11/16/15) LISINOPRIL (Unverified Allergy, Unknown, 11/16/15) Subjective 11/28: No acute events, pt resting no distress. 11/29: US Abd and tumor markers reviewed 11/30: no acute events reported. Objective Objective Current Medications Medications (Trade) Dose Ordered Sig/Joellen Route PRN Reason Start Time Stop Time Status Last Admin Dose Admin Acetaminophen (Tylenol) 650 mg Q4H PRN ORAL For Pain 11/27/18 14:26 12/27/18 14:25 11/30/18 06:19 Amlodipine Besylate (Norvasc) 5 mg BID ORAL 11/29/18 18:00 12/27/18 08:59 11/30/18 09:03 Latanoprost (Xalatan) 1 drop BEDTIME BOTH EYES 11/27/18 21:00 12/27/18 20:59 11/29/18 21:05 Multivitamins (Multivitamins) 1 tab DAILY ORAL 11/28/18 09:00 12/27/18 08:59 11/30/18 09:03 Pantoprazole (Protonix) 40 mg ACBREAKFAST ORAL 11/28/18 06:30 12/27/18 06:29 11/30/18 06:16 Sennosides (Senokot) 17.2 mg DAILYPRN PRN ORAL Constipation 11/28/18 00:15 12/28/18 00:14 Sertraline HCl (Zoloft) 200 mg DAILY ORAL 11/28/18 09:00 12/27/18 08:59 11/30/18 09:04 Tamsulosin HCl (Flomax) 0.4 mg BEDTIME ORAL 11/28/18 21:00 12/28/18 20:59 11/29/18 21:04 Last 24 Hour Vital Signs Date Time Temp Pulse Resp B/P (MAP) Pulse Ox O2 Delivery O2 Flow Rate FiO2 11/30/18 12:00 97.6 74 20 109/81 (90) 95 11/30/18 09:03 81 142/76 11/30/18 09:00 Room Air 11/30/18 08:00 97.2 81 22 142/76 (98) 98 11/30/18 08:00 80 11/30/18 04:00 66 11/30/18 04:00 97.6 66 18 144/79 (100) 98 11/30/18 00:00 97.5 66 18 153/75 (101) 95 11/29/18 21:00 Room Air 11/29/18 20:00 72 11/29/18 20:00 97.8 72 18 156/88 (110) 95 11/29/18 17:17 70 152/72 11/29/18 16:00 99.0 85 20 147/93 (111) 97 11/29/18 16:00 91 11/29/18 12:00 80 11/29/18 12:00 97.9 70 20 152/72 (98) 95 11/29/18 09:20 82 133/70 11/29/18 09:00 Room Air 11/29/18 08:00 80 11/29/18 08:00 98.1 89 20 166/96 (119) 95 11/29/18 04:00 98.0 77 18 157/77 (103) 95 11/29/18 04:00 69 11/29/18 00:16 97.5 66 18 166/73 (104) 96 11/28/18 23:46 80 11/28/18 21:00 Room Air 11/28/18 20:00 98.1 70 18 143/63 (89) 96 11/28/18 19:50 65 11/28/18 16:00 97.8 82 17 135/56 (82) 97 11/28/18 16:00 86 Intake and Output 11/29/18 11/30/18 19:00 07:00 Intake Total 460 ml 240 ml Output Total 650 ml 500 ml Balance -190 ml -260 ml Intake Oral 350 ml 240 ml IV Total 110 ml Output Urine Total 650 ml 500 ml # Bowel Movements 1 Labs Test 11/28/18 05:47 White Blood Count 16.0 K/UL (4.8-10.8) Red Blood Count 3.61 M/UL (4.70-6.10) Hemoglobin 10.9 G/DL (14.2-18.0) Hematocrit 34.0 % (42.0-52.0) Mean Corpuscular Volume 94 FL (80-99) Mean Corpuscular Hemoglobin 30.3 PG (27.0-31.0) Mean Corpuscular Hemoglobin Concent 32.2 G/DL (32.0-36.0) Red Cell Distribution Width 16.4 % (11.6-14.8) Platelet Count 112 K/UL (150-450) Mean Platelet Volume 9.9 FL (6.5-10.1) Neutrophils (%) (Auto) 84.9 % (45.0-75.0) Lymphocytes (%) (Auto) 5.8 % (20.0-45.0) Monocytes (%) (Auto) 8.2 % (1.0-10.0) Eosinophils (%) (Auto) 0.6 % (0.0-3.0) Basophils (%) (Auto) 0.5 % (0.0-2.0) Sodium Level 140 MMOL/L (136-145) Potassium Level 4.4 MMOL/L (3.5-5.1) Chloride Level 104 MMOL/L (98-107) Carbon Dioxide Level 24 MMOL/L (21-32) Anion Gap 12 mmol/L (5-15) Blood Urea Nitrogen 22 mg/dL (7-18) Creatinine 1.4 MG/DL (0.55-1.30) Estimat Glomerular Filtration Rate mL/min (>60) Glucose Level 82 MG/DL (74-106) Hemoglobin A1c 5.9 % (4.3-6.0) Uric Acid 5.0 MG/DL (2.6-7.2) Calcium Level 9.4 MG/DL (8.5-10.1) Phosphorus Level 3.0 MG/DL (2.5-4.9) Magnesium Level 2.1 MG/DL (1.8-2.4) Iron Level 75 ug/dL (50-175) Total Iron Binding Capacity 255 ug/dL (250-450) Percent Iron Saturation 29 % (15-50) Unsaturated Iron Binding 180 ug/dL (112-346) Ferritin 462 NG/ML (8-388) Total Bilirubin 0.6 MG/DL (0.2-1.0) Gamma Glutamyl Transpeptidase 33 U/L (5-85) Aspartate Amino Transf (AST/SGOT) 17 U/L (15-37) Alanine Aminotransferase (ALT/SGPT) 22 U/L (12-78) Alkaline Phosphatase 103 U/L (46-116) C-Reactive Protein, Quantitative 1.5 mg/dL (0.00-0.90) Pro-B-Type Natriuretic Peptide 76 pg/mL (0-125) Total Protein 8.0 G/DL (6.4-8.2) Albumin 3.9 G/DL (3.4-5.0) Globulin 4.1 g/dL Albumin/Globulin Ratio 1.0 (1.0-2.7) Triglycerides Level 40 MG/DL (30-150) Cholesterol Level 150 MG/DL (< 200) LDL Cholesterol 104 mg/dL (<100) HDL Cholesterol 40 MG/DL (40-60) Cholesterol/HDL Ratio 3.8 (3.3-4.4) Vitamin B12 Level 609 PG/ML (193-986) Folate 8.8 NG/ML (8.6-58.9) Thyroid Stimulating Hormone (TSH) 1.260 uiU/mL (0.358-3.740) Free Thyroxine 0.91 NG/DL (0.76-1.46) Height (Feet): 5 Height (Inches): 8.00 Weight (Pounds): 160 Objective Objective Physical Exam: Vitals: reviewed General Appearance: NAD HEENT: normocephalic, atraumatic Neck: non-tender, normal alignment Respiratory/Chest: normal breath sounds bilaterally Cardiovascular/Chest: normal peripheral pulses, normal rate Abdomen: normal bowel sounds, soft, nontender Extremities: normal range of motion Gume Webb MD Nov 30, 2018 13:23
--- NOTE | 2018-11-30 15:05 | NUR ---
NURSE NOTES: Patient discharged [facility] per Dr. Saravia's order. All discharge instructions explained to patient. Called to [facility] and report given to nurse Jaime. Patient discharged from IV, Heart monitor removed and returned to conveyor monitor. Patient received all his belongings and will continue to his home medication. Patient discharged in stable condition and went to SNF with [facility].
--- NOTE | 2018-12-01 09:21 | Discharge Summary ---
Discharge Summary Discharge Summary _ DATE OF ADMISSION: 11/26/2018 DATE OF DISCHARGE: 11/30/2018 DISCHARGED BY: REASON FOR ADMISSION: 88 years old male with past medical history of hypertension, chronic kidney disease, GERD, leukemia, encephalopathy, dementia, anemia, was sent from the [facility] facility for abnormal labs. Recent lab work revealed white blood count of 2.3 . Patient denied fever and chills. Patient reported dysuria . Patient had a history of prior bladder infection . Upon evaluation vital signs were stable except blood pressure was elevated 165/ 72. Laboratory work-up revealed WBC 1.8, hemoglobin 10.3, hematocrit 30.7 ,platelet count 115. Stable electrolytes. BUN 22, creatinine 1.3. Glucose 105. Lactic acid 1.2. Stable LFT. Urinalysis revealed pyuria and few bacteria. Chest x-ray revealed no acute cardiopulmonary pathology. Patient was admitted for further management. CONSULTANTS: supervisor show operations Dr. Celestin ID specialist Dr. Das orchid superintendent Dr. Stoll gray mixing operator/oncologist Dr. Webb HOSPITAL COURSE: Patient admitted to telemetry floor. Hiv Nurse and gray mixing operator closely followed. Patient received dose of Neupogen 300 mcg subcutaneously x1. WBC the next day up to 16 after Neupogen. Counts were closely monitored Hemoglobin hematocrit are closely monitored with goal to keep hemoglobin above 7. Anemia work-up revealed evidence of anemia of chronic disease with ferritin 462. Hemoglobin and hematocrit remained stable, prior to discharge hemoglobin 10.9 hematocrit 30.4. Platelet count remained stable prior to discharge 112. Pancytopenia was likely due to leukemia as per gray mixing operator. Clinical Laboratory Science Professor recommended at this time hold off on bone marrow biopsy. Hepatitis panel was negative. HIV test was nonreactive. Ultrasound of the abdomen was negative for evidence of cirrhosis. No evidence of gallstones or dilated ducts. Patient also noted to have elevated PSA of 12.1 and CEA-6.9. Patient will need urology evaluation as outpatient to rule out possible prostate cancer( sharp increase from prior PSA level 2.6 to current 12.1) Patient will also benefit form GI evaluation. Patient will need to follow-up with the gray mixing operator in 2 weeks as outpatient for further workup, management and coordination of care. Hiv Nurse followed. Renal parameters and electrolytes were closely monitored. Electrolytes corrected as needed. Hiv Nurse recommended to avoid nephrotoxic. Patient likely had a chronic kidney disease stage II. Urine culture revealed mixed urogenital contaminants. Blood culture were negative. Antibiotics were discontinued as per infectious disease doctor recommendation. Patient was observed off antibiotics and remained stable. Road Mixer Operator follow-up for bradycardia. Telemetry showed sinus bradycardia with first-degree IV block. Patient was taken off clonidine , and heart rate stabilized. Blood pressure was managed with calcium channel january . GI prophylaxis provided. Flomax continued. Supportive care provided. Pain management was addressed as needed. Zoloft continued. Behavior and mood remain appropriate. Patient clinically stabilized and was ready for discharge to the detention facility for continuation of care. 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 DISCHARGE INSTRUCTIONS: Patient was discharged to the detention facility. Follow up with medical doctor at the facility. Follow-up with gray mixing operator/oncologist in 2 weeks as outpatient I have been assigned to dictate discharge summary for this account. I was not involved in the patient's management. Ann Marie Berman NP Dec 01, 2018 09:21
== END 2018-11-30 15:05 | DRG 841 ==
LOC: EDBD 18:12 → EMR 18:46 → 4E 21:22 → EDBEDREQ 21:36 → 2E 11-27 13:00
DX: C95.90 Leukemia, unspecified not having achieved remission (principal); D61.818 Other pancytopenia; N39.0 Urinary tract infection, site not specified; F03.90 Unspecified dementia, unspecified severity, without behavioral disturbance, psychotic disturbance, mood disturbance, and anxiety; N18.2 Chronic kidney disease, stage 2 (mild); E86.0 Dehydration; R97.20 Elevated prostate specific antigen [PSA]; R97.0 Elevated carcinoembryonic antigen [CEA]; R00.1 Bradycardia, unspecified; I10 Essential (primary) hypertension; F41.8 Other specified anxiety disorders; Z88.8 Allergy status to other drugs, medicaments and biological substances; H40.9 Unspecified glaucoma
CPT/HCPCS: 36415; 71045; 76700; 80053; 80061; 81003; 82378; 82607; 82728; 82746; 82977; 83036; 83540; 83550; 83605; 83735; 83880; 84100; 84153; 84439; 84443; 84550; 85007; 85025; 85060; 86140; 86703; 86705; 86709; 86803; 87040; 87081; 87086; 87340; 93005; 93306; 93880; 93970; 99285